=== PATIENT | female | born 2000 | race African-American/Black ===

== ENCOUNTER 2018-05-17 03:21 | Emergency (ER) | payer BC ==
--- OUTSIDE RECORDS SUMMARY | 2018-05-17 03:23 | XMS REPORT | Continuity of Care Document ---
:2000 Author Organization Interface Problems Problem Status Onset Classification Date Comments Source Date Reported Morbid Active Problem 12/04/2017 [facility] Medications Medication Details Route Status Patient Ordering Order Source Instructions Provider Date Triamcinolone
1 appl, Active Acetonide 1 TOP, TID, 018 Medical MG/ML Topical PRN For Group Lotion rash, X 14 day, # 60 ml, 0 Refill(s), Pharmacy: [facility] [id number] Nebulizer
1 ea, Active MISC, 018 Medical ONCALL, with Group adult mask, tubing and accessories, # 1 ea, 0 Refill(s) 200 ACTUAT
180 Active Albuterol 0.09 microgram=2 018 Medical MG/ACTUAT puff, Group Metered Dose INHALER, Inhaler Q6H, PRN [Proventil] wheezing, coughing, or shortness of breath, # 3 ea, 11 Refill(s), Pharmacy: [facility] [id number] montelukast 10
10 mg=1 Active mg oral tablet tab, PO, 018 Medical Bedtime, # Group 30 tab, 11 Refill(s), Pharmacy: [facility] [id number] predniSONE 20 mg
60 mg=3 Active oral tablet tab, PO, 018 Medical Daily, Take Group 3 tablets for 60 mg dose, X 5 day, # 15 tab, 0 Refill(s), Pharmacy: [facility] [id number] Advair HFA 115
1 puff, Active mcg-21 mcg/inh INHALATION, 018 Medical inhalation BID, # 12 Group aerosol with gm, 3 adapter Refill(s), Pharmacy: [facility] [id number] Albuterol 0.83
2.49 Active MG/ML Inhalant mg=3 mL, 018 Medical Solution NEB, Q6H, Group PRN as needed for shortness of breath, # 120 ea, 3 Refill(s), Pharmacy: [facility] [id number] 200 ACTUAT
2 puff, Inactive Albuterol 0.09 INHALER, 018 Medical MG/ACTUAT Q6H, PRN Group Metered Dose wheezing, Inhaler coughing, or [Proventil] shortness of breath, # 1 ea, 1 Refill(s) Allergies, Adverse Reactions, Alerts Substance Category Reaction Severity Reaction Status Date Comments Source type Reported codeine Assertion Drug Active allergy Medical Group Immunizations Immunization Date Given Site Status Last Updated Comments Source Results Order Results Value Reference Date Interpretation Comments Source Name Range Chest 2 Chest 2 PA and lateral views chest views views DX 2017 - [place] [facility] [place] INDICATION: Chest pain Read by: Wade Rajan MD Dictated Date/time: 02/26/18 00:54 Electronically Signed by: Wade Rajan MD 02/26/18 00:54 FINAL REPORT COMPARISON: none FINDINGS: Heart/mediastinum: normal LUNGS: clear without infiltrate or effusion Bone structures: unremarkable Upper abdomen: unremarkable Incidental findings: none IMPRESSION: Normal chest radiographs. Vital Signs Vital Sign Value Date Comments Source Height 166.37 cm 12/01/2017 Medical Group BMI Calculated 35.48 12/01/2017 Medical [facility] Weight 98.21 12/01/2017 Medical Group Systolic (mm Hg) 118 12/01/2017 Medical Group Diastolic (mm Hg) 81 12/01/2017 Medical [facility] Temperature Oral (F) 98.8 F 12/01/2017 Medical [facility] Heart Rate 68 12/01/2017 Medical [facility] Encounters Location Location Encounter Encounter Reason Attending ADM DC Status Source Details Type Number For Provider Date Date Visit Outpatient [id number] WILLIAMS 12/01 [facility] Outpatient [id number] Williams 12/01 12/02 [facility] [place] /2017 [facility] Out[facility] [id number] [facility] [facility] [place] Procedures Procedure Code Date Perfomer Comments Source
--- OUTSIDE RECORDS SUMMARY | 2018-05-17 03:24 | XMS REPORT | Summary of Care ---
:2000 Author Organization [facility] Primary Care [facility] Address [address] [place] [address], [address] [address]- Encounter HQ Bennett(FIN) [id number] Date(s): 12/01/17 - 12/01/17 [facility] [address] [place] [address], [address] [place] [address]- [phone] Discharge Disposition: Home or Self Care Attending Physician: Williams Bell MD Vital Signs Most recent to oldest [Reference Range]: 1 Height 166.37 cm (12/01/17 1:39 PM) Temperature Oral [96.4-99.1 DegF] 98.8 DegF (12/01/17 1:39 PM) Blood Pressure [90-140/60-90 mmHg] 118/81 mmHg (12/01/17 1:39 PM) Peripheral Pulse Rate [60-100 bpm] 68 bpm (12/01/17 1:39 PM) Weight 98.21 kg (12/01/17 1:39 PM) Body Mass Index 35.48 m2 (12/01/17 1:39 PM) Problem List Condition Effective Dates Status Health Status Informant Morbid obesity(Confirmed) Active Allergies, Adverse Reactions, Alerts Substance Reaction Severity Status codeine Active Medications Advair HFA 115 mcg-21 mcg/inh inhalation aerosol with adapter 1 puff, INHALATION, BID, # 12 gm, 3 Refill(s), Pharmacy: [facility] [id number] Start Date: 12/01/17 Status: Orderedalbuterol 0.083% inhalation solution 2.49 mg=3 mL, NEB, Q6H, PRN as needed for shortness of breath, # 120 ea, 3 Refill(s), Pharmacy: [facility] [id number] Start Date: 12/01/17 Stop Date: 03/31/18 Status: Orderedmontelukast 10 mg oral tablet 10 mg=1 tab, PO, Bedtime, # 30 tab, 11 Refill(s), Pharmacy: [facility] [id number] Start Date: 12/01/17 Status: OrderedNebulizer 1 ea, MISC, ONCALL, with adult mask, tubing and accessories, # 1 ea, 0 Refill(s) Start Date: 12/01/17 Status: OrderedpredniSONE 20 mg oral tablet 60 mg=3 tab, PO, Daily, Take 3 tablets for 60 mg dose, X 5 day, # 15 tab, 0 Refill(s), Pharmacy: [facility] [id number] Start Date: 12/01/17 Stop Date: 12/06/17 Status: OrderedProventil HFA 90 mcg/inh inhalation aerosol with adapter 2 puff, INHALER, Q6H, PRN wheezing, coughing, or shortness of breath, # 1 ea, 1 Refill(s) Start Date: 12/01/17 Stop Date: 12/01/17 Status: DiscontinuedProventil HFA 90 mcg/inh inhalation aerosol with adapter 180 microgram=2 puff, INHALER, Q6H, PRN wheezing, coughing, or shortness of breath, # 3 ea, 11 Refill(s), Pharmacy: [facility] [id number] Start Date: 12/01/17 Status: Orderedtriamcinolone topical 0.1% lotion 1 appl, TOP, TID, PRN For rash, X 14 day, # 60 ml, 0 Refill(s), Pharmacy: [facility] [id number] Start Date: 12/01/17 Stop Date: 12/15/17 Status: Ordered Results No data available for this section Immunizations No data available for this section Procedures Procedure Date Related Diagnosis Body Site None Social History Social History Type Response Smoking Status Never smoker; Ready to change: No; Concerns about tobacco use in household: No; Exposure to Tobacco Smoke None; Cigarette Smoking Last 365 Days No; Reg Smoking Cessation Counseling No Assessment and Plan No data available for this section
[2018-05-17 04:18] LABS: Absolute Lymphocytes (CBC) 2.2 K/uL (0.7-4.9); Absolute Monocytes 0.7 K/uL (0.1-1.3); Absolute Neutrophil 3.1 K/uL (1.8-8.0); Basophils % 0.8 % (0-1.3); Hematocrit 38.1 % (36.0-45.0); Lymphocytes % 34.7 % (15.3-44.8); MCH 25.7 pg (27.0-35.0); MCV 77.8 fL (80-100); MPV 8.5 fL (7.6-11.3); Monocytes % 11.3 % (3.3-12.3)
[2018-05-17 04:23] LABS: Potassium 3.2 mEq/L (3.6-5.0)
[2018-05-17 04:26] LABS: Albumin 4.1 g/dL (3.2-5.5); Bilirubin Total 0.9 mg/dL (0.3-1.2); Protein, Total 7.9 g/dL (6.0-8.3)
--- NOTE | 2018-05-17 05:38 | ER ---
Nurse's Notes [facility] Name: Parisa Hernandez Age: 18 yrs Sex: Female : 2000 Arrival Date: 05/17/2018 Time: 03:22 Bed 13 Private MD: Diagnosis: Chest pain;Medication reaction Presentation: 05/17 03:30 Presenting complaint: Patient states: at 1900 chest pain and SOB. 2145 after clocking ak1 out of work, dizziness and light headed. pt became anxious and could not sleep. pt stated chest pain sometimes radiates to her back and the back of her neck. 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 Transition of care: patient was not received from another setting of care. Onset of symptoms was May 17, 2018. Risk Assessment: Do you want to hurt yourself or someone else? Patient reports no desire to harm self or others. Initial Sepsis Screen: Does the patient meet any 2 criteria? No. Patient's initial sepsis screen is negative. Does the patient have a suspected source of infection? No. Patient's initial sepsis screen is negative. Care prior to arrival: None. 03:30 Method Of Arrival: Ambulatory ak1 03:30 Acuity: ENA 3 ak1 03:34 Note pt taking cipro for UTI. ak1 Triage Assessment: 03:36 General: Appears in no apparent distress. 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 - Social history:: Smoking status: Patient/guardian denies using tobacco. - Ebola Screening: : No symptoms or risks identified at this time. Screenin:35 Abuse screen: Denies threats or abuse. Denies injuries from another. Nutritional ak1 screening: No deficits noted. Tuberculosis screening: No symptoms or risk factors identified. Fall Risk None identified. Assessment: 03:35 Pain: Pain radiates to base of the skull Pain began 1900 05/16/18. ak1 03:40 General: Appears in no apparent distress. uncomfortable, Behavior is calm, cooperative, bs1 appropriate for age. Pain: Complains of pain in mid chest Pain radiates to base of the skull. Neuro: Level of Consciousness is awake, alert, obeys commands, Oriented to person, place, time, situation, Appropriate for age. Cardiovascular: Reports chest pain, shortness of breath, Heart tones S1 S2 present Capillary refill < 3 seconds Patient's skin is warm and dry. Respiratory: Airway is patent Trachea midline Respiratory effort is even, unlabored, Breath sounds are clear bilaterally. GI: No signs and/or symptoms were reported involving the gastrointestinal system. : No signs and/or symptoms were reported regarding the genitourinary system. EENT: No signs and/or symptoms were reported regarding the EENT system. Derm: Skin is intact, Skin is pink, warm \T\ dry. normal. Musculoskeletal: Circulation, motion, and sensation intact. Capillary refill < 3 seconds, Range of motion: intact in all extremities. 04:30 Reassessment: Patient appears in no apparent distress at this time. Patient and/or bs1 family updated on plan of care and expected duration. Pain level reassessed. Patient is alert, oriented x 3, equal unlabored respirations, skin warm/dry/pink. Patient states feeling better. Patient states symptoms have improved. 05:30 Reassessment: Patient appears in no apparent distress at this time. Patient and/or bs1 family updated on plan of care and expected duration. Pain level reassessed. Vital Signs: 03:34 BP 128 / 89; Pulse 86; Resp 18; Temp 98.1; Pulse Ox 99% on R/A; Weight 90.72 kg (R); ak1 Height 5 ft. 8 in. (172.72 cm) (R); Pain 5/10; 04:34 BP 112 / 62; Pulse 82; Resp 16; Pulse Ox 100% on R/A; Pain 0/10; bs1 05:34 BP 110 / 60; Pulse 80; Resp 16; Temp 98(O); Pulse Ox 100% on R/A; Pain 0/10; bs1 03:34 Body Mass Index 30.41 (90.72 kg, 172.72 cm) ak1 ED Course: 03:22 Patient arrived in ED. ds1 03:25 Marco Antonio Phoenix MD is Attending Physician. ps1 03:32 Triage completed. ak1 03:34 Cayla Cornelius, RN is Primary Nurse. bs1 03:34 Arm band placed on Patient placed in an exam room, on a stretcher, on pulse oximetry, ak1 Patient notified of wait time. 03:35 Patient has correct armband on for positive identification. Bed in low position. Call ak1 light in reach. Side rails up X 1. Pulse ox on. NIBP on. 03:35 Patient maintains SpO2 saturation greater than 95% on room air. ak1 05:47 No provider procedures requiring assistance completed. IV discontinued, bleeding bs1 controlled, No redness/swelling at site. Pressure dressing applied. Administered Medications: No medications were administered Outcome: 05:37 Discharge ordered by MD. ps1 05:47 Discharged to home ambulatory. bs1 05:47 Condition: stable 05:47 Discharge instructions given to patient, Instructed on discharge instructions, follow up and referral plans. Demonstrated understanding of instructions, follow-up care. 05:48 Patient left the ED. bs1 Signatures: Haven Rosenbaum ds1 Karissa Garner RN RN ak1 Marco Antonio Phoenix MD MD ps1 Cayla Cornelius, RN RN bs1
--- NOTE | 2018-05-17 05:38 | EDPHYS ---
Physician Documentation [facility] Name: Parisa Hernandez Age: 18 yrs Sex: Female : 2000 Arrival Date: 05/17/2018 Time: 03:22 Bed 13 Private MD: ED Physician Marco Antonio Phoenix HPI: 05/17 03:47 This 18 yrs old Black Female presents to ER via Ambulatory with complaints of Chest ps1 Pain, Shortness Of Breath. 03:47 The patient or guardian reports chest pain that is located primarily in the anterior ps1 chest wall, left. The pain does not radiate. Associated signs and symptoms: Pertinent positives: palpitations, shortness of breath. The chest pain is described as sharp. Duration: The patient or guardian reports a single episode, that is now resolved. Feels like she may have had a panic attack or as if she had too much caffiene.Patient is additionally on phentermine for weight loss. Was not told that she may have these side effects. Has a history of sinus arrythmia. . 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 - Social history:: Smoking status: Patient/guardian denies using tobacco. - Ebola Screening: : No symptoms or risks identified at this time. ROS: 03:50 Constitutional: Negative for fever, chills, and weight loss, Eyes: Negative for injury, ps1 pain, redness, and discharge, Abdomen/GI: Negative for abdominal pain, nausea, vomiting, diarrhea, and constipation, Back: Negative for injury and pain, MS/Extremity: Negative for injury and deformity, Skin: Negative for injury, rash, and discoloration, Neuro: Negative for headache, weakness, numbness, tingling, and seizure. 03:50 Cardiovascular: Positive for chest pain. 03:50 Respiratory: Positive for shortness of breath. Exam: 03:51 Constitutional: This is a well developed, well nourished patient who is awake, alert, ps1 and in no acute distress. Head/Face: Normocephalic, atraumatic. Eyes: Pupils equal round and reactive to light, extra-ocular motions intact. Lids and lashes normal. Conjunctiva and sclera are non-icteric and not injected. Chest/axilla: Normal chest wall appearance and motion. Nontender with no deformity. No lesions are appreciated. Cardiovascular: Regular rate and rhythm. No gallops, murmurs, or rubs. Normal PMI, no JVD. No pulse deficits. Respiratory: Lungs have equal breath sounds bilaterally, clear to auscultation and percussion. No rales, rhonchi or wheezes noted. No increased work of breathing, no retractions or nasal flaring. Abdomen/GI: Soft, non-tender, with normal bowel sounds. No distension or tympany. No guarding or rebound. No evidence of tenderness throughout. Skin: Warm, dry with normal turgor. Normal color with no rashes, no lesions, and no evidence of cellulitis. MS/ Extremity: Pulses equal, no cyanosis. Neurovascular intact. Full, normal range of motion. Neuro: Awake and alert, GCS 15, oriented to person, place, time, and situation. Cranial nerves II-XII grossly intact. Sensory grossly intact. Psych: Awake, alert, with orientation to person, place and time. Behavior, mood, and affect are within normal limits. Vital Signs: 03:34 BP 128 / 89; Pulse 86; Resp 18; Temp 98.1; Pulse Ox 99% on R/A; Weight 90.72 kg (R); ak1 Height 5 ft. 8 in. (172.72 cm) (R); Pain 5/10; 04:34 BP 112 / 62; Pulse 82; Resp 16; Pulse Ox 100% on R/A; Pain 0/10; bs1 05:34 BP 110 / 60; Pulse 80; Resp 16; Temp 98(O); Pulse Ox 100% on R/A; Pain 0/10; bs1 03:34 Body Mass Index 30.41 (90.72 kg, 172.72 cm) ak1 MDM: 04:12 Patient medically screened. ps1 05:38 Data reviewed: vital signs, nurses notes, lab test result(s). ED course: pain ps1 reproducible. History consistent with medication reaction to phenteramine. PERC ruled out. Stable for discharge. . 05/17 03:47 Order name: CBC with Diff; Complete Time: 04:26 ps1 05/17 03:47 Order name: CMP; Complete Time: 05:10 ps1 05/17 03:47 Order name: EKG - Nurse/Tech; Complete Time: 03:56 ps1 05/17 04:07 Order name: EKG; Complete Time: 04:07 oe Administered Medications: No medications were administered Disposition: 05/17/18 05:37 Discharged to Home. Impression: Chest pain, Medication reaction. - Condition is Stable. - Discharge Instructions: Costochondritis, [id number]. - Medication Reconciliation Form, Thank You Letter, Antibiotic Education, Prescription Opioid Use form. - Follow up: Private Physician; When: As needed; Reason: Recheck today's complaints, Continuance of care, Re-evaluation by your physician. Follow up: Emergency Department; When: As needed; Reason: Fever > 102 F, Trouble breathing, Worsening of condition. - Problem is new. - Symptoms are resolved. Signatures: Dispatcher [employer] EDMS Karissa Garner RN RN ak1 Marco Antonio Phoenix MD MD ps1 Cayla Cornelius RN RN bs1 Corrections: (The following items were deleted from the chart) 05:48 05:37 05/17/2018 05:37 Discharged to Home. Impression: Chest pain; Medication reaction. bs1 Condition is Stable. Forms are Medication Reconciliation Form, Thank You Letter, Antibiotic Education, Prescription Opioid Use. Follow up: Private Physician; When: As needed; Reason: Recheck today's complaints, Continuance of care, Re-evaluation by your physician. Follow up: Emergency Department; When: As needed; Reason: Fever > 102 F, Trouble breathing, Worsening of condition. Problem is new. Symptoms are resolved. ps1
--- NOTE | 2018-05-17 09:28 | EKG ---
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
== END 2018-05-17 05:48 | disposition home or self-care (01) ==
LOC: ER 03:21
DX: R07.9 Chest pain, unspecified (principal); R06.02 Shortness of breath; Z88.6 Allergy status to analgesic agent
CPT/HCPCS: 36415; 80053; 85025; 93005; 99284

== ENCOUNTER 2019-11-12 21:57 | Emergency (ER) | payer BC ==
[2019-11-12 22:54] LABS: Absolute Lymphocytes (CBC) 2.5 K/uL (0.7-4.9); Basophils % 1.1 % (0-1.3); MPV 9.5 fL (7.6-11.3); RBC Red Blood Cell Count 4.53 M/uL (3.86-4.86)
[2019-11-12 23:26] LABS: ALT/SGPT 26 U/L (12-78); AST/SGOT 17 U/L (15-37); Albumin 3.5 g/dL (3.4-5.0); Alkaline Phosphatase 145 U/L (45-117); BUN Blood Urea Nitrogen 9 mg/dL (7-18); Bicarbonate 27 mmol/L (21-32); Bilirubin Direct < 0.1 mg/dL (0-0.2); Bilirubin Total 0.2 mg/dL (0.2-1.0); Glucose Level 98 mg/dL (74-106); Lipase 138 U/L (73-393); Potassium 3.9 mmol/L (3.5-5.1); Sodium Level 142 mmol/L (136-145)
[2019-11-12 23:37] LABS: Urine Blood NEGATIVE (NEG); Urine Glucose NEGATIVE (NEG); Urine Protein NEGATIVE (NEG); Urine Specific Gravity 1.015 (1.005-1.030)
[2019-11-12 23:43] LABS: Urine Bacteria <20 /HPF (<20); Urine Culture Reflex Order NOT NEEDED; Urine RBC NONE SEEN /HPF (NONE SEEN)
--- NOTE | 2019-11-13 00:35 | ER ---
Nurse's Notes [facility] Name: Parisa Hernandez Age: 19 yrs Sex: Female : 2000 Arrival Date: 11/12/2019 Time: 21:59 Bed 5 Private MD: Diagnosis: Nonspecific mesenteric lymphadenitis Presentation: 11/12 22:08 Presenting complaint: Patient states: pelvic pain that started earlier this evening. aa1 Denies bleeding or dysuria. Transition of care: patient was not received from another setting of care. Onset of symptoms was November 12, 2019. Risk Assessment: Do you want to hurt yourself or someone else? Patient reports no desire to harm self or others. Initial Sepsis Screen: Does the patient meet any 2 criteria? No. Patient's initial sepsis screen is negative. Does the patient have a suspected source of infection? No. Patient's initial sepsis screen is negative. Care prior to arrival: None. 22:08 Method Of Arrival: Ambulatory aa1 22:08 Acuity: ENA 3 aa1 Triage Assessment: 22:10 General: Appears in no apparent distress. comfortable, Behavior is calm, cooperative, aa1 appropriate for age. 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 - Social history:: Smoking status: Patient uses tobacco products, denies chronic smoking, but will smoke occasionally. - Ebola Screening: : No symptoms or risks identified at this time. Screenin:11 Abuse screen: Denies threats or abuse. Nutritional screening: No deficits noted. ea Tuberculosis screening: No symptoms or risk factors identified. Fall Risk None identified. Assessment: 22:10 General: Appears in no apparent distress. Behavior is calm, cooperative, appropriate ea for age. Pain: Complains of pain in left lower quadrant. Neuro: Level of Consciousness is awake, alert, obeys commands, Oriented to person, place, time, situation. Cardiovascular: Patient's skin is warm and dry. Respiratory: Airway is patent Respiratory effort is even, unlabored, Respiratory pattern is regular, symmetrical. GI: Reports lower abdominal pain, diarrhea, report diarrhea for the past week Patient currently denies nausea, vomiting. Derm: Skin is pink, warm \T\ dry. Musculoskeletal: Circulation, motion, and sensation intact. 23:30 Reassessment: Patient and/or family updated on plan of care and expected duration. Pain ea level reassessed. Patient is alert, oriented x 3, equal unlabored respirations, skin warm/dry/pink. 11/13 00:00 Reassessment: Patient and/or family updated on plan of care and expected duration. Pain ea level reassessed. Patient is alert, oriented x 3, equal unlabored respirations, skin warm/dry/pink. 00:30 Reassessment: pt complaining of wheezing, provider notified, medication order obtained. ea 00:50 Reassessment: Patient and/or family updated on plan of care and expected duration. Pain ea level reassessed. Patient is alert, oriented x 3, equal unlabored respirations, skin warm/dry/pink. Discharge instruction given to patient, verbalized the understanding of instruction. Pt left ED ambulatory accompanied by family. Vital Signs: 11/12 22:10 BP 148 / 96; Pulse 74; Resp 18; Temp 98.5; Pulse Ox 100% on R/A; Weight 97.52 kg; aa1 Height 5 ft. 7 in. (170.18 cm); Pain 7/10; 23:37 BP 125 / 68; Pulse 80; Resp 18; Pulse Ox 100% ; ea 11/13 00:45 BP 128 / 70; Pulse 78; Resp 18; Temp 97.5; Pulse Ox 99% ; ea 11/12 22:10 Body Mass Index 33.67 (97.52 kg, 170.18 cm) aa1 ED Course: 11/12 21:59 Patient arrived in ED. cf2 22:10 Triage completed. aa1 22:10 Zane Fernandez PA is PHCP. jr8 22:10 Saul Seth MD is Attending Physician. jr8 22:11 Arm band placed on right wrist. Patient placed in an exam room, on a stretcher, on ea pulse oximetry. 22:12 Patient has correct armband on for positive identification. Bed in low position. Call ea light in reach. Side rails up X 1. Adult w/ patient. 22:22 Oksana Dodge, RN is Primary Nurse. ea 22:45 Inserted saline lock: 20 gauge in right antecubital area, using aseptic technique. ea 11/13 00:26 CT Abd/Pelvis - IV Contrast Only In Process Unspecified. EDMS 00:50 IV discontinued, intact, bleeding controlled, No redness/swelling at site. Pressure ea dressing applied. 01:04 No provider procedures requiring assistance completed. ea Administered Medications: 00:30 Drug: Albuterol 1.25 mg Route: Inhalation; ea 00:55 Follow up: Response: No adverse reaction ea 00:43 Drug: TORadol - Ketorolac 15 mg Route: IVP; Site: right antecubital; jd3 00:45 Follow up: Response: Medication administered at discharge. jd3 Outcome: 00:35 Discharge ordered by . jr8 00:50 Discharged to home ambulatory, with significant other. ea 00:50 Condition: stable 00:50 Instructed on discharge instructions, follow up and referral plans. Demonstrated understanding of instructions, follow-up care. 01:06 Patient left the ED. ea 01:10 Patient left the ED. ea Signatures: Dispatcher [employer] EDMS Johana Zambrano, RN RN aa1 Zane Fernandez PA PA jr8 Oksana Dodge RN RN Jay Sutton RN RN Russell Sousa2
--- NOTE | 2019-11-13 00:35 | EDPHYS ---
Physician Documentation [facility] Name: Parisa Hernandez Age: 19 yrs Sex: Female : 2000 Arrival Date: 11/12/2019 Time: 21:59 Bed 5 Private MD: ED Physician Saul Seth HPI: 11/12 22:29 This 19 yrs old Black Female presents to ER via Ambulatory with complaints of Abdominal jr8 pain. 22:29 The patient presents with abdominal pain in the left lower quadrant. Onset: The jr8 symptoms/episode began/occurred acutely, today. The symptoms radiate to left back. Associated signs and symptoms: none. The symptoms are described as stabbing. Modifying factors: The symptoms are alleviated by nothing, the symptoms are aggravated by nothing. Severity of pain: At its worst the pain was moderate in the emergency department the pain is unchanged. The patient has not experienced similar symptoms in the past. The patient has not recently seen a physician. 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 - Social history:: Smoking status: Patient uses tobacco products, denies chronic smoking, but will smoke occasionally. - Ebola Screening: : No symptoms or risks identified at this time. ROS: 22:29 Eyes: Negative for injury, pain, redness, and discharge, ENT: Negative for injury, jr8 pain, and discharge, Neck: Negative for injury, pain, and swelling, Cardiovascular: Negative for chest pain, palpitations, and edema, Respiratory: Negative for shortness of breath, cough, wheezing, and pleuritic chest pain, Back: Negative for injury and pain, MS/Extremity: Negative for injury and deformity, Skin: Negative for injury, rash, and discoloration, Neuro: Negative for headache, weakness, numbness, tingling, and seizure. 22:29 Abdomen/GI: Positive for abdominal pain, Negative for nausea, vomiting, and diarrhea, constipation, abdominal cramps, abdominal distension. Exam: 22:29 Eyes: Pupils equal round and reactive to light, extra-ocular motions intact. Lids and jr8 lashes normal. Conjunctiva and sclera are non-icteric and not injected. Cornea within normal limits. Periorbital areas with no swelling, redness, or edema. ENT: Nares patent. No nasal discharge, no septal abnormalities noted. Tympanic membranes are normal and external auditory canals are clear. Oropharynx with no redness, swelling, or masses, exudates, or evidence of obstruction, uvula midline. Mucous membranes moist. Neck: Trachea midline, no thyromegaly or masses palpated, and no cervical lymphadenopathy. Supple, full range of motion without nuchal rigidity, or vertebral point tenderness. No Meningismus. Cardiovascular: Regular rate and rhythm with a normal S1 and S2. No gallops, murmurs, or rubs. Normal PMI, no JVD. No pulse deficits. Respiratory: Lungs have equal breath sounds bilaterally, clear to auscultation and percussion. No rales, rhonchi or wheezes noted. No increased work of breathing, no retractions or nasal flaring. Back: No spinal tenderness. No costovertebral tenderness. Full range of motion. Skin: Warm, dry with normal turgor. Normal color with no rashes, no lesions, and no evidence of cellulitis. MS/ Extremity: Pulses equal, no cyanosis. Neurovascular intact. Full, normal range of motion. Neuro: Awake and alert, GCS 15, oriented to person, place, time, and situation. Cranial nerves II-XII grossly intact. Motor strength 5/5 in all extremities. Sensory grossly intact. Cerebellar exam normal. Normal gait. 22:29 Abdomen/GI: Inspection: abdomen appears normal, Bowel sounds: active, all quadrants, Palpation: soft, in all quadrants, moderate abdominal tenderness, in the left lower quadrant, mass, is not appreciated, rebound tenderness, is not appreciated, voluntary guarding, is not appreciated, involuntary guarding, is not appreciated, no appreciated organomegaly, Indicators: McBurney's point is not tender, Lora's sign is negative, Rovsing's sign is negative, Liver: tenderness, is not appreciated. Vital Signs: 22:10 BP 148 / 96; Pulse 74; Resp 18; Temp 98.5; Pulse Ox 100% on R/A; Weight 97.52 kg; aa1 Height 5 ft. 7 in. (170.18 cm); Pain 7/10; 23:37 BP 125 / 68; Pulse 80; Resp 18; Pulse Ox 100% ; ea 11/13 00:45 BP 128 / 70; Pulse 78; Resp 18; Temp 97.5; Pulse Ox 99% ; ea 11/12 22:10 Body Mass Index 33.67 (97.52 kg, 170.18 cm) aa1 MDM: 11/12 22:11 Patient medically screened. [facility] 11/13 00:34 Data reviewed: vital signs, nurses notes, lab test result(s), radiologic studies, CT [facility] scan. Data interpreted: Pulse oximetry: on room air is 100 %. Interpretation: normal. Counseling: I had a detailed discussion with the patient and/or guardian regarding: the historical points, exam findings, and any diagnostic results supporting the discharge/admit diagnosis, lab results, radiology results, the need for outpatient follow up, a family practitioner, to return to the emergency department if symptoms worsen or persist or if there are any questions or concerns that arise at home. 11/12 22:21 Order name: Basic Metabolic Panel; Complete Time: 23:53 [facility] 11/12 22:21 Order name: CBC with Diff; Complete Time: 23:30 [facility] 11/12 22:21 Order name: Creatinine for Radiology; Complete Time: 23:53 [facility] 11/12 22:21 Order name: Hepatic Function; Complete Time: 23:53 [facility] 11/12 22:21 Order name: Lipase; Complete Time: 23:53 [facility] 11/12 22:21 Order name: Urine Microscopic Only; Complete Time: 23:53 [facility] 11/12 22:21 Order name: IV Saline Lock; Complete Time: 22:56 [facility] 11/12 22:21 Order name: Labs collected and sent; Complete Time: 22:56 [facility] 11/12 22:21 Order name: Urine Test (obtain specimen); Complete Time: 22:56 [facility] 11/12 22:51 Order name: Urine Dipstick--Ancillary (enter results); Complete Time: 23:53 [facility] 11/12 22:51 Order name: Urine --Ancillary (enter results); Complete Time: 23:53 [facility] 11/12 23:21 Order name: CT Abd/Pelvis - IV Contrast Only [facility] 11/12 22:21 Order name: Urine Dipstick-Ancillary (obtain specimen); Complete Time: 22:56 jr8 Administered Medications: 00:30 Drug: Albuterol 1.25 mg Route: Inhalation; ea 00:55 Follow up: Response: No adverse reaction ea 00:43 Drug: TORadol - Ketorolac 15 mg Route: IVP; Site: right antecubital; jd3 00:45 Follow up: Response: Medication administered at discharge. jd3 Disposition: 01:22 Co-signature as Attending Physician, Saul Seth MD. rn Disposition: 11/13/19 00:35 Discharged to Home. Impression: Nonspecific mesenteric lymphadenitis. - Condition is Stable. - Discharge Instructions: Mesenteric Adenitis, Pediatric, Lymphadenopathy. - Medication Reconciliation Form, Thank You Letter, Antibiotic Education, Prescription Opioid Use form. - Follow up: Private Physician; When: 2 - 3 days; Reason: Recheck today's complaints, Continuance of care, Re-evaluation by your physician. - Problem is new. - Symptoms have improved. Signatures: Dispatcher [employer] EDJohana Schmidt RN RN aa1 Saul Seth MD MD rn Roszak, Josh, INDER LOVING jr8 Oksana Dodge RN RN ea Davies, Jonathon, RN RN jd3 Corrections: (The following items were deleted from the chart) 01:06 00:35 11/13/2019 00:35 Discharged to Home. Impression: Nonspecific mesenteric ea lymphadenitis. Condition is Stable. Forms are Medication Reconciliation Form, Thank You Letter, Antibiotic Education, Prescription Opioid Use. Follow up: Private Physician; When: 2 - 3 days; Reason: Recheck today's complaints, Continuance of care, Re-evaluation by your physician. Problem is new. Symptoms have improved. jr8 01:10 01:06 11/13/2019 00:35 Discharged to Home. Impression: Nonspecific mesenteric ea lymphadenitis. Condition is Stable. Discharge Instructions: Mesenteric Adenitis, Pediatric, Lymphadenopathy. Forms are Medication Reconciliation Form, Thank You Letter, Antibiotic Education, Prescription Opioid Use. Follow up: Private Physician; When: 2 - 3 days; Reason: Recheck today's complaints, Continuance of care, Re-evaluation by your physician. Problem is new. Symptoms have improved. ea
[2019-11-13] MEDS ORDERED: KETOROLAC 30 MG/ML INJ ONE (00:42)
[2019-11-13] MEDS ORDERED: ALBUTEROL 2.5 MG/3 ML NEB SOL ONE (00:49)
[2019-11-13 04:05] VITALS: TEMP 98.7
[2019-11-13 04:06] VITALS: BP 114/75; O2SAT 99
--- NOTE | 2019-11-13 12:08 | RAD REPORT ---
EXAM DESCRIPTION: Abdomen Pelvis W Contrast CLINICAL HISTORY: 19 years Female PELVIC PAIN TECHNIQUE: Contiguous axial images obtained through the abdomen and pelvis following intravenous con trast administration. Coronal and sagittal reformatted images provided. This CT exam was performed according to our departmental dose-optimization program, which includes on e or more of the following dose reduction techniques: automated exposure control, adjustment of the m A and/or kV according to patient size, and/or use of iterative reconstruction technique. COMPARISON: No prior exams provided for comparison. FINDINGS: There is moderate hepatomegaly without focal lesion. The lung bases, biliary tree, gallbladder, pancreas, spleen, adrenal glands, uterus, ovaries, and uri nary bladder are normal. Bilateral renal cysts without hydronephrosis or pyelonephritis on either side. Trace free fluid in the cul-de-sac. Mild colonic constipation. No bowel wall thickening, obstruction, pneumatosis, or free intraperitonea l air. Normal appendix. Nonspecific borderline ileocolic lymph nodes. No other lymphadenopathy. Small fat-containing umbilical hernia. No acute osseous abnormality. IMPRESSION: Moderate hepatomegaly without focal lesion. Trace free fluid in the cul-de-sac without adnexal mass. Mild mesenteric adenitis. Mild colonic constipation. Normal appendix. Electronically signed by: Cristy Francis MD 11/13/2019 12:29 AM MACHINE HAND Due to temporary technical issues with the PACS/Fluency reporting system, reports are being signed by the in house radiologist as a courtesy to ensure prompt reporting. The interpreting radiologist is f ully responsible for the content of the report.
== END 2019-11-13 01:10 | disposition home or self-care (01) ==
LOC: ER 21:57
DX: I88.0 Nonspecific mesenteric lymphadenitis (principal); Z72.0 Tobacco use; Z88.5 Allergy status to narcotic agent
CPT/HCPCS: 85025; 80048; 36415; 81025; 80076; 83690; 74177; 96374; 99284; Q9967; 81003; 81015

== ENCOUNTER 2020-08-08 15:30 | Emergency (ER) | payer BC ==
--- OUTSIDE RECORDS SUMMARY | 2020-08-08 15:39 | XMS REPORT | Continuity of Care Document ---
:2000 Author Organization [employer] Care Team Providers Name Role Phone [employer] Unavailable Un available Problems Problem Status Onset Classification Date Comments Sourc e Date Reported Chest pain, 06/04/2018 [place] r unspecified 8 Land Shortness of 06/04/2018 Sug ar breath [place] Morbid obesity Active Problem 06/04/2018 Cory edical (disorder) Group, [facility] Medications Medication Details Route Status Patient Ordering Order Source Instructions Provider Date Naproxen 500 MG 500 mg = 1 No Longer [facility] Enteric Coated tab, PO, Active 018 Land Tablet BID, X 10 [Naprosyn] day, # 20 tab, 0 Refill(s) Esomeprazole 40 40 mg = 1 Active Sug ar MG Enteric cap, PO, 018 [place] Coated Capsule Daily, # 30 [Nexium] cap, 0 Refill(s) Ketorolac 30 mg, Inactive [facility] Route: IVP, 018 Land ONCE, Dosing Weight 95.455, kg, Priority: STAT, Start date: 02/26/18 0:22:00 CDT, Stop date: 02/26/18 0:22:00 CDT GI cocktail 30 mL, Inactive [facility] Route: PO, 018 Land Dosing Weight 95.455, kg, ONCE, STAT, Start date: 02/26/18 0:22:00 CDT, Stop date: 02/26/18 0:22:00 CDT Famotidine 20 mg, Inactive [facility] Route: IVP, 018 Land ONCE, Dosing Weight 95.455, kg, Priority: STAT, Start date: 02/26/18 0:22:00 CDT, Stop date: 02/26/18 0:22:00 CDT Dicyclomine 20 mg = 1 Active Hydrochloride 20 tab, PO, 018 Medica l MG Oral Tablet QID-Before Group [Bentyl] Meals, PRN Bowel Movements, # 120 tab, 1 Refill(s), Pharmacy: [facility] [id number] Triamcinolone 1 appl, TOP, Active Acetonide 1 TID, PRN For 018 Medical MG/ML Topical rash, X 14 Group Lotion day, # 60 ml, 0 Refill(s), [id number] Nebulizer 1 ea, MISC, Active ONCALL, with 018 Medical adult mask, Group tubing and accessories, # 1 ea, 0 Refill(s) 200 ACTUAT 180 Active Albuterol 0.09 microgram = 018 Medic al MG/ACTUAT 2 puff, Group Metered Dose INHALER, Inhaler Q6H, PRN [Proventil] wheezing, coughing, or shortness of breath, # 3 ea, 11 Refill(s), Pharmacy: [facility] [id number] montelukast 10 10 mg = 1 Active mg oral tablet tab, PO, 018 Medical Bedtime, # Group 30 tab, 11 Refill(s), Pharmacy: [facility] [id number] predniSONE 20 mg 60 mg = 3 Active oral tablet tab, PO, 018 Medical Daily, Take Group 3 tablets for 60 mg dose, X 5 day, # 15 tab, 0 Refill(s), Pharmacy: [facility] [id number] Advair HFA 115 1 puff, Active mcg-21 mcg/inh INHALATION, 018 Medic al inhalation BID, # 12 Group aerosol with gm, 3 adapter Refill(s), Pharmacy: [facility] [id number] Albuterol 0.83 2.49 mg = 3 Active MH MG/ML Inhalant mL, NEB, 018 Medical Solution Q6H, PRN as Group needed for shortness of breath, # 120 ea, 3 Refill(s), Pharmacy: [facility] [id number] 200 ACTUAT 2 puff, Inactive Albuterol 0.09 INHALER, 018 Medical MG/ACTUAT Q6H, PRN Group Metered Dose wheezing, Inhaler coughing, or [Proventil] shortness of breath, # 1 ea, 1 Refill(s) Allergies, Adverse Reactions, Alerts Substance Category Reaction Severity Reaction Status Date Comments S ource type Reported codeine Assertion Drug Active MH allergy [facility] Immunizations No Data Provided for This Section Results Order Name Results Value Reference Date Interpretation Comments Marizol rce Range HEMATOLOGY D-Dimer <0.27 02/26 [facility] CARDIAC Troponin-I <0.02 0.00 - 02/26 MH ENZYMES 0.40 [facility] CHEM PANEL Lipase Lvl 120 73 - 393 02/26 [facility] CHEM PANEL A/G Ratio 1.0 0.7 - 1.6 02/26 [facility] CHEM PANEL Globulin 3.6 2.7 - 4.2 02/26 [facility] CHEM PANEL B/C Ratio 11 6 - 25 02/26 [facility] CHEM PANEL AGAP 14.8 10.0 - 02/26 MH 20.0 [facility] CHEM PANEL Bili Total 0.1 0.2 - 1.3 02/26 [place] CHEM PANEL Albumin Lvl 3.6 3.5 - 5.0 02/26 [place] CHEM PANEL Total 7.2 6.4 - 8.4 02/26 Protein [facility] CHEM PANEL Alk Phos 87 39 - 136 02/26 [facility] CHEM PANEL AST 19 0 - 37 02/26 [facility] CHEM PANEL ALT 32 0 - 65 02/26 [facility] CHEM PANEL eGFR 121 02/26 Result Comment: The [facility] eGFR is Land calculated using the CKD-EPI formula. In most young, healthy individuals the eGFR will be >90 mL/min/1.73m2 . The eGFR declines with age. An eGFR of 60-89 may be normal in some populations, particularly the elderly, for whom the CKD-EPI formula has not been extensively validated. Use of the eGFR is not recommended in the following populations:< br/>
[place] viduals with unstable creatinine concentration s, including patients and those with serious co-morbid conditions.<b r/>
Patie nts with extremes in muscle mass or diet.

The data above are obtained from the National Kidney Disease Education Program (NKDEP) which additionally recommends that when the eGFR is used in patients with extremes of body mass index for purposes of drug dosing, the eGFR should be multiplied by the estimated BMI. CHEM PANEL Glucose Lvl 90 70 - 99 02/26 [facility] CHEM PANEL CO2 24 24 - 32 02/26 [facility] CHEM PANEL Calcium Lvl 8.8 8.5 - 10.5 02/26 [facility] CHEM PANEL Chloride Lvl 106 95 - 109 02/26 [facility] CHEM PANEL Creatinine 0.81 0.50 - 02/26 MH Lvl 1.40 [facility] CHEM PANEL BUN 9 7 - 22 02/26 [facility] CHEM PANEL Potassium 3.8 3.5 - 5.1 02/26 MH Lvl /2017 [facility] CHEM PANEL Sodium Lvl 141 135 - 145 02/26 [facility] ENDOCRINOLOGY S Preg Negative Negative 02/26 (02/26/18 12:23 AM) [facility] HEMATOLOGY WBC 8.9 3.7 - 10.4 02/26 [facility] HEMATOLOGY Hgb 12.3 12.0 - 02/26 MH 16.0 [facility] HEMATOLOGY MCH 26.0 27.0 - 02/26 MH 31.0 [facility] HEMATOLOGY MCV 80.0 80.0 - 02/26 MH 98.0 [facility] HEMATOLOGY RBC 4.75 4.20 - 02/26 MH 5.40 /2017 [facility] HEMATOLOGY Hct 38.0 36.0 - 02/26 48.0 /2017 [facility] HEMATOLOGY RDW 14.3 11.5 - 02/26 MH 14.5 /2017 [facility] HEMATOLOGY MCHC 32.4 32.0 - 02/26 MH 36.0 [facility] HEMATOLOGY MPV 9.1 7.4 - 10.4 02/26 [facility] HEMATOLOGY Platelet 238 133 - 450 02/26 [facility] HEMATOLOGY Basophils # 0.1 0.0 - 0.2 02/26 [facility] HEMATOLOGY Segs-Bands # 4.4 1.5 - 8.1 02/26 [facility] HEMATOLOGY Eosinophils 0.5 0.0 - 0.5 02/26 MH # /2017 [facility] HEMATOLOGY Eosinophils 5.2 0.0 - 4.0 02/26 [facility] HEMATOLOGY Basophils 0.8 0.0 - 1.0 02/26 [facility] HEMATOLOGY Lymphocytes 3.1 1.0 - 5.5 02/26 # /2017 [facility] HEMATOLOGY Monocytes # 0.8 0.0 - 0.8 02/26 [facility] HEMATOLOGY Segs 50.1 45.0 - 02/26 75.0 [facility] HEMATOLOGY Lymphocytes 34.5 20.0 - 02/26 40.0 /2017 [facility] HEMATOLOGY Monocytes 9.4 2.0 - 12.0 02/26 [facility] Pathology Reports No Data Provided for This Section Diagnostic Reports Report Value Date Source Chest 2 views DX PA and lateral views chest 02/26/2018 [place] INDICATION: Chest pain COMPARISON: none FINDINGS: Heart/mediastinum: normal LUNGS: clear without infiltrate or effusion Bone structures: unremarkable Upper abdomen: unremarkable Incidental findings: none IMPRESSION: Normal chest radiographs. Consultation Notes No Data Provided for This Section Discharge Summaries No Data Provided for This Section History and Physicals No Data Provided for This Section Vital Signs Vital Sign Value Date Comments Source Systolic (mm Hg) 131 02/26/2018 [place] Diastolic (mm Hg) 78 02/26/2018 [facility] L and Heart Rate 61 02/26/2018 [facility] Respitory Rate 17 02/26/2018 [facility] Weight 95.455 02/26/2018 [facility] Systolic (mm Hg) 125 02/26/2018 [place] Diastolic (mm Hg) 76 02/26/2018 [facility] L and Heart Rate 63 02/26/2018 [facility] Respitory Rate 17 02/26/2018 [facility] Height 170.18 cm 02/26/2018 [facility] BMI Calculated 32.96 02/26/2018 [facility] Temperature Oral (F) 98.1 F 02/26/2018 [place] BMI Calculated 35.19 02/08/2018 [facility] Systolic (mm Hg) 120 02/08/2018 [facility] Diastolic (mm Hg) 80 02/08/2018 [facility] Weight 98.892 02/08/2018 [facility] Height 167.64 cm 02/08/2018 [facility] Heart Rate 75 02/08/2018 [facility] Height 166.37 cm 12/01/2017 [facility] BMI Calculated 35.48 12/01/2017 [facility] Weight 98.21 12/01/2017 [facility] Systolic (mm Hg) 118 12/01/2017 [facility] Diastolic (mm Hg) 81 12/01/2017 [facility] Temperature Oral (F) 98.8 F 12/01/2017 [facility]i [facility] Heart Rate 68 12/01/2017 [facility] p Encounters Location Location Encounter Encounter Reason Attending ADM DC Stat us Source Details Type Number For Provider Date Date Visit Outpatient [id number] [facility] Outpatient [id number] [place] 12/01 12/02 [facility] Outpatient [id number] C[place] 02/08 [facility] [place] [facility] Outpatient [id number] [place] 02/08 02/09 [facility] Emergency [id number] [place] 02/26 02/26 [place] [facility] Procedures No Data Provided for This Section Assessment and Plan No Data Provided for This Section Plan of Care No Data Provided for This Section Social History Social History Date Source Social History TypeResponse 02/26/2018 [facility] Smoking Status Never smoker; Type: Cigarettes; Ready to change: Yes; Concerns about tobacco use in household: No; Exposure to Tobacco Smoke None; Cigarette Smoking Last 365 Days Yes; Reg Smoking Cessation Counseling Yes entered on: 02/26/18 Social History TypeResponse 02/26/2018 [facility] Michele d Smoking Status Never smoker; Type: Cigarettes; Ready to change: Yes; Concerns about tobacco use in household: No; Exposure to Tobacco Smoke None; Cigarette Smoking Last 365 Days Yes; Reg Smoking Cessation Counseling Yes entered on: 02/26/18 Family History No Data Provided for This Section Advance Directives No Data Provided for This Section Functional Status No Data Provided for This Section
[2020-08-08 16:27] LABS: Absolute Lymphocytes (CBC) 1.7 K/uL (0.7-4.9); Hematocrit 40.6 % (36.0-45.0); Lymphocytes % 22.3 % (15.3-44.8); MPV 8.6 fL (7.6-11.3); RBC Red Blood Cell Count 5.07 M/uL (3.86-4.86)
[2020-08-08 16:28] LABS: Protime INR 1.1
[2020-08-08 16:36] LABS: Barbiturates NEGATIVE (NEGATIVE); Benzodiazepines NEGATIVE (NEGATIVE); Cocaine NEGATIVE (NEGATIVE); METHAMPHETAM NEGATIVE (NEGATIVE); Methadone NEGATIVE (NEGATIVE); Opiates NEGATIVE (NEGATIVE); Phencyclidine NEGATIVE (NEGATIVE); THC Cannibis POSITIVE (NEGATIVE)
[2020-08-08] MEDS ORDERED: NA CHLORIDE 0.9% 1,000 ML ONE (16:39)
[2020-08-08 16:41] LABS: Urine Blood NEGATIVE (NEG); Urine Glucose NEGATIVE (NEG); Urine Protein TRACE (NEG); Urine Specific Gravity >1.030 (1.005-1.030); Urine pH 5.5 (5.0-7.0)
[2020-08-08 16:47] LABS: ALT/SGPT 20 U/L (12-78); AST/SGOT 14 U/L (15-37); Alkaline Phosphatase 79 U/L (45-117); BUN Blood Urea Nitrogen 9 mg/dL (7-18); Bicarbonate 26 mmol/L (21-32); Bilirubin Direct 0.1 mg/dL (0-0.2); Bilirubin Total 0.4 mg/dL (0.2-1.0); Glucose Level 80 mg/dL (74-106); Potassium 3.5 mmol/L (3.5-5.1); Protein, Total 8.1 g/dL (6.4-8.2); Sodium Level 140 mmol/L (136-145)
--- NOTE | 2020-08-08 20:21 | EDPHYS ---
Physician Documentation [facility] Name: Parisa Hernandez Age: 20 yrs Sex: Female : 2000 Arrival Date: 08/08/2020 Time: 15:35 Bed 15 Private MD: ED Physician Saul Seth HPI: 08/08 15:52 This 20 yrs old Black Female presents to ER via EMS with complaints of Overdose, jmm Suicidal Ideation. 15:52 The patient presents to the emergency department after a known overdose, that was jmm intentional. Context: Time: 1 hour(s) ago, Extent:. Associated signs and symptoms: Pertinent positives: anxiety, decreased level of consciousness. The patient has experienced a previous episode. This is a 20 year old female with a history of asthma, depression, anxiety that presents to the ED in a somnolent state. According to EMS patient took 21 tabs of clonazepam. Patient states she has attempted to harm herself in the past. . 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 - Social history:: Smoking status: Patient reports the use of cigarette tobacco products, denies chronic smoking, but will smoke occasionally, Patient uses alcohol, occasionally. street drugs, marijuana. ROS: 15:52 Constitutional: Negative for fever, chills, and weight loss, Cardiovascular: Negative jmm for chest pain, palpitations, and edema, Respiratory: Negative for shortness of breath, cough, wheezing, and pleuritic chest pain, Abdomen/GI: Negative for abdominal pain, nausea, vomiting, diarrhea, and constipation. 15:52 Psych: Positive for anxiety, depression. 15:52 All other systems are negative. Exam: 15:52 Head/Face: atraumatic. Eyes: EOMI, no conjunctival erythema appreciated ENT: Moist jmm Mucus Membranes Neck: Trachea midline, Supple 15:52 Chest/axilla: Normal chest wall appearance and motion. Cardiovascular: Regular rate and rhythm. No edema appreciated Respiratory: Normal respirations, no respiratory distress appreciated Abdomen/GI: Non distended, soft Back: Normal ROM Skin: General appearance color normal MS/ Extremity: Moves all extremities, no obvious deformities appreciated, no edema noted to the lower extremities Neuro: Awake and alert, normal gait Psych: Behavior is normal, Mood is normal, Patient is cooperative and pleasant 15:52 Constitutional: The patient appears awake, anxious. Vital Signs: 15:41 BP 120 / 82; Pulse 101; Resp 17 S; Temp 98.7(TE); Pulse Ox 99% on R/A; Weight 90.72 kg ca1 (R); Height 5 ft. 7 in. (170.18 cm) (R); 16:49 BP 106 / 66; Pulse 86; Resp 16; Pulse Ox 100% ; bp 17:43 BP 117 / 66; Pulse 84; Resp 16; Pulse Ox 100% ; bp 15:41 Body Mass Index 31.32 (90.72 kg, 170.18 cm) ca1 MDM: 15:39 Patient medically screened. [facility] 20:18 Data reviewed: vital signs, nurses notes. Counseling: I had a detailed discussion with dominik the patient and/or guardian regarding: the historical points, exam findings, and any diagnostic results supporting the discharge/admit diagnosis, lab results, the need to transfer to another facility. Admission orders: after a detailed discussion of the patient's condition and case, the admit orders are written by me. ED course: I discussed the patient with with psychiatry from [facility] whom accepted transfer.. 08/08 15:45 Order name: Acetaminophen; Complete Time: 16:48 [facility] 08/08 15:45 Order name: Basic Metabolic Panel; Complete Time: 16:48 [facility] 08/08 15:45 Order name: CBC with Diff; Complete Time: 16:48 [facility] 08/08 15:45 Order name: ETOH Level; Complete Time: 16:48 [facility] 08/08 15:45 Order name: Hepatic Function; Complete Time: 16:48 [facility] 08/08 15:45 Order name: PT-INR; Complete Time: 16:48 [facility] 08/08 15:45 Order name: Urine Test (obtain specimen); Complete Time: 16:15 [facility] 08/08 15:45 Order name: Ptt, Activated; Complete Time: 16:48 [facility] 08/08 15:45 Order name: Salicylate; Complete Time: 16:54 [facility] 08/08 15:45 Order name: Urine Drug Screen; Complete Time: 16:48 [facility] 08/08 15:45 Order name: EKG; Complete Time: 15:47 [facility] 08/08 16:30 Order name: Urine Dipstick--Ancillary (enter results); Complete Time: 16:48 08/08 16:30 Order name: Urine --Ancillary (enter results); Complete Time: 16:48 08/08 15:45 Order name: EKG - Nurse/Tech; Complete Time: 17:00 [facility] 08/08 15:45 Order name: IV Saline Lock; Complete Time: 16:15 [facility] 08/08 15:45 Order name: Labs collected and sent; Complete Time: 16:15 [facility] 08/08 15:45 Order name: Urine Dipstick-Ancillary (obtain specimen); Complete Time: 16:15 [facility] Administered Medications: 16:00 Drug: NS 0.9% 1000 ml Route: IV; Rate: 1 bolus; Site: right forearm; bp 18:57 Follow up: IV Status: Completed infusion; IV Intake: 1000ml bp Disposition: 08/08/20 20:20 Transfer ordered to Psych Facility. Diagnosis is Suicidal ideations. - Reason for transfer: Higher level of care. - Accepting physician is [facility]. - Condition is Stable. - Problem is an acute exacerbation. - Symptoms are unchanged. Addendum: 08/10/2020 19:28 Co-signature as Attending Physician, Saul Seth MD. r n Signatures: Dispatcher [employer] EDMS Arvind Glass PA PA [facility] Saul Seth MD MD rn Peltier, Brian, RN RN bp Acob, Cheryl, RN RN ca1 Calcote, Vanessa, RN RN vc Corrections: (The following items were deleted from the chart) 08/08 21:40 20:20 08/08/2020 20:20 Transfer ordered to Psych Facility. Diagnosis is Suicidal vc ideations. Reason for transfer: Higher level of care. Accepting physician is [facility]. Condition is Stable. Problem is an acute exacerbation. Symptoms are unchanged. [facility]
--- NOTE | 2020-08-08 20:21 | ER ---
Nurse's Notes [facility] Name: Parisa Hernandez Age: 20 yrs Sex: Female : 2000 Arrival Date: 08/08/2020 Time: 15:35 Bed 15 Private MD: Diagnosis: Suicidal ideations Presentation: 08/08 15:41 Chief complaint: EMS states: Found by her aunt in her car barely responsive, reports ca1 she took 21 tabs of her Clonazepam 0.5mg <45 minutes [employer]. A\\T\\Ox4 on scene, reports drowsiness and dizziness. Noticed cutting on bilateral forearms. Coronavirus screen: Client denies travel out of the [place] in the last 14 days. At this time, the client does not indicate any symptoms associated with coronavirus-19. Ebola Screen: Patient negative for fever greater than or equal to 101.5 degrees Fahrenheit, and additional compatible Ebola Virus Disease symptoms Patient denies exposure to infectious person. Patient denies travel to an Ebola-affected area in the 21 days before illness onset. No symptoms or risks identified at this time. Initial Sepsis Screen: Does the patient meet any 2 criteria? No. Patient's initial sepsis screen is negative. Does the patient have a suspected source of infection? No. Patient's initial sepsis screen is negative. Risk Assessment: Do you want to hurt yourself or someone else? Unable to obtain Other: Pt refuses to answer. Onset of symptoms was August 08, 2020. 15:41 Method Of Arrival: EMS: [facility] ca1 15:41 Acuity: ENA 2 ca1 15:47 Chief complaint: Patient states: I also took a handful of Gabapentin this morning ca1 around 10-11 am but I made myself threw up right after I swallowed some. Triage Assessment: 15:45 General: Appears distressed, comfortable, obese, Behavior is flat, uncooperative. Pain: bp Denies pain. EENT: No deficits noted. Neuro: Level of Consciousness is awake, alert, obeys commands, Oriented to person, place, time, situation, Appropriate for age. Cardiovascular: No deficits noted. Respiratory: No deficits noted. GI: No signs and/or symptoms were reported involving the gastrointestinal system. : No signs and/or symptoms were reported regarding the genitourinary system. Derm: No deficits noted. Musculoskeletal: No deficits noted. 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 - Social history:: Smoking status: Patient reports the use of cigarette tobacco products, denies chronic smoking, but will smoke occasionally, Patient uses alcohol, occasionally. street drugs, marijuana. Screenin:45 Abuse screen: Denies threats or abuse. Denies injuries from another. Nutritional bp screening: No deficits noted. Tuberculosis screening: No symptoms or risk factors identified. Fall Risk None identified. Assessment: 15:45 General: SEE TRIAGE NOTE. bp 16:25 Reassessment: Aquiles from Poison Control called prior to pt arrival and recommended to iw monitor pt for DRAMATIC DIRECTOR depression and respiratory depression, draw tox labs, EKG, , give support give care, do not give Romazicon. 17:31 Reassessment: PROVIDER AT B/S. PT UDS NOTED TO BE LACKING IN ALLEGEDLY INGESTED bp MATERIALS. 17:43 Reassessment: [facility] [address], PROVIDED TO PT FOR COUNSELING. bp 18:23 Reassessment: pt removed her IV, states she wants to go home, pt was updated on POC, iw advised that [facility] recommends inpatient treatment and INDER Samuels agrees she needs inpatient treatment, I advised the pt that we are going to initiate transfer to psych facility, pt states "no I wanna go home, y'all can't keep me here, if y'all try to send me somewhere I'm gonna kill myself". 18:33 Reassessment: INDER Samuels notified of pt's statements, [facility] was notified iw for LESLIE, states he has to drive from [place] and to call [place] [employer] if pt is actively trying to leave the ER. 18:44 Reassessment: PT ATTEMPTING TO ELOPE, COMPLIED WITH VERBAL REDIRECTION TO ROOM. PT D/C bp MONITORING EQUIPMENT AND PIV. 18:48 Reassessment: PT OUT OF BED TO RESTROOM DESPITE REDIRECTION, REFUSING TO RELINQUISH bp PERSONAL WARDROBE. 18:56 Reassessment: [facility] CONTACTED, PT ELOPED FROM BUILDING, IGNORING STAFF DIRECTION. bp 19:19 Reassessment: PATIENTS MOM CALLED WITH ACCESS CODE, UNAWARE PATIENT HAD ELOPED. vc 19:38 Reassessment: Leonora RN for [facility] for nurse to nurse, awaiting a doc to doc sg report at this time. 21:04 Reassessment: pt ambulatory to ER front lobby, refusing to come back into the dept. at sg this time, security with patient in the lobby at this time, awaiting GAETANO for assistance to get pt back to exam room. 21:17 Reassessment: pt back in ED exam room at this time, [place] with patient, pt is sg cooperative and nonviolent toward staff at this time, reports that she does not want to go to the psych facility, if she has to go there she will kill her self, reports not plan on how to harm herself at this time, pt denies homicidal ideations, awaiting pt transport to psych facility at this time. 21:21 Reassessment: PATIENT SPEAKING WITH OFFICER AT BEDSIDE, PATIENT STATED SHE TOOK 20 vc LORAZEPAM. SHE STATES THAT IF WE MAKE HER TRANSFER TO "[facility], I WILL KILL MYSELF.". 21:35 Reassessment: PATIENT REFUSES TO GET ONTO EMS STRETCHER AFTER INSTRUCTED TO GET ON, vc PATIENT IS HANDCUFFED AND PLACED ON STRETCHER BY [facility] MAT[facility]WS. ACCORDING TO EMS NEW POLICY STATES A HOOD FITTER IS REQUIRED TO RIDE ALONG WHEN PATIENT HAS AN LESLIE, [place] [employer] TO RIDE ALONG WITH EMS. Overdose: 16:23 Patient took 21 tabs of clonazepan 0.5 mg. iw Vital Signs: 15:41 BP 120 / 82; Pulse 101; Resp 17 S; Temp 98.7(TE); Pulse Ox 99% on R/A; Weight 90.72 kg ca1 (R); Height 5 ft. 7 in. (170.18 cm) (R); 16:49 BP 106 / 66; Pulse 86; Resp 16; Pulse Ox 100% ; bp 17:43 BP 117 / 66; Pulse 84; Resp 16; Pulse Ox 100% ; bp 15:41 Body Mass Index 31.32 (90.72 kg, 170.18 cm) ca1 ED Course: 15:35 Patient arrived in ED. iw 15:37 Arvind Glass PA is PHCP. m 15:37 Saul Seth MD is Attending Physician. m 15:39 Tomas Burr, ROCÍO is Primary Nurse. bp 15:44 Triage completed. ca1 15:45 Safety Checks: Personal items have been removed. The door is open or patient has been bp placed in a hallway bed/chair. There are no family/friend visitors at this time Sitter not present at this time. 15:45 Patient has correct armband on for positive identification. Placed in gown. Bed in low bp position. Call light in reach. Side rails up X2. 15:46 Arm band placed on right wrist. ca1 16:00 Safety Checks: Personal items have been removed. The door is open or patient has been bp placed in a hallway bed/chair. There are no family/friend visitors at this time Sitter not present at this time. 16:13 Initial lab(s) drawn, by me, sent to lab. Inserted saline lock: 20 gauge in right iw antecubital area, using aseptic technique. Blood collected. 16:15 Safety Checks: Personal items have been removed. The door is open or patient has been bp placed in a hallway bed/chair. There are no family/friend visitors at this time Sitter not present at this time. 16:30 Safety Checks: Personal items have been removed. The door is open or patient has been bp placed in a hallway bed/chair. There are no family/friend visitors at this time Sitter not present at this time. 16:45 Safety Checks: Personal items have been removed. The door is open or patient has been bp placed in a hallway bed/chair. There are no family/friend visitors at this time Sitter not present at this time. 17:00 Safety Checks: Personal items have been removed. The door is open or patient has been bp placed in a hallway bed/chair. There are no family/friend visitors at this time Sitter not present at this time. 17:03 contacted [facility] to have pt evaluated by screener. bd 17:15 Safety Checks: Personal items have been removed. The door is open or patient has been bp placed in a hallway bed/chair. There are no family/friend visitors at this time Sitter not present at this time. 17:30 Safety Checks: Personal items have been removed. The door is open or patient has been bp placed in a hallway bed/chair. There are no family/friend visitors at this time Sitter not present at this time. 18:24 pt evaluated by Hubert with [facility] via i pad, Hubert recommends in pt. bd 18:25 pt trying to leave, was instructed by Arvind Glass to notify mental health deputy to have emergency group home order filled out for pt. 19:02 faxed chart to [facility]. bd 19:35 Angelica from [facility] called to do Nurse to Nurse. Spoke with Charge Nurse. tt3 21:40 No provider procedures requiring assistance completed. vc 21:40 Patient did not have IV access during this emergency room visit. PATIENT REMOVED IV BY vc SELF ON THE PREVIOUS SHIFT. Administered Medications: 16:00 Drug: NS 0.9% 1000 ml Route: IV; Rate: 1 bolus; Site: right forearm; bp 18:57 Follow up: IV Status: Completed infusion; IV Intake: 1000ml bp Intake: 18:57 IV: 1000ml; Total: 1000ml. bp Outcome: 20:20 ER care complete, transfer ordered by MD. lehman 21:40 Patient left the ED. vc 21:40 Transferred by ground EMS [facility] [facility].. to other acute care vc facility: [facility].. 21:40 Condition: good 21:40 Instructed on the need for transfer. Signatures: Rosario Driscoll Steven, Arvind Simeon RN, PA PA jmm Williams, Irene, RN RN iw Peltier, Brian, RN RN bp Letty Mckeon RN RN ca1 Fidelina Berg RN RN vc Griffin Arzate tt3 Corrections: (The following items were deleted from the chart) 15:48 15:41 Risk Assessment: Do you want to hurt yourself or someone else? Patient reports no ca1 desire to harm self or others. ca1 22:14 22:07 Reassessment: vc vc
[2020-08-08 21:47] VITALS: TEMP 98.7
[2020-08-08 21:49] VITALS: O2SAT 100
[2020-08-08 21:50] VITALS: BP 117/66
--- NOTE | 2020-08-09 11:22 | EKG ---
Test Date: 2020-08-08 Test Time: 16:37:38 Shop Lead: BRYSON MEASUREMENT RESULTS: Intervals: Rate: 82 CO: 156 QRSD: 88 QT: 394 QTc: 460 [place]: P: 63 CO: 156 QRS: 56 T: 21 INTERPRETIVE STATEMENTS: Normal sinus rhythm Normal ECG Compared to ECG 05/17/2018 03:55:19 T-wave abnormality no longer present Electronically Signed On 08-09-20 11:20:18 CDT by Fredo Vaca
== END 2020-08-08 21:40 ==
LOC: ER 15:30
DX: T42.4X2A Poisoning by benzodiazepines, intentional self-harm, initial encounter (principal); F41.8 Other specified anxiety disorders; F17.210 Nicotine dependence, cigarettes, uncomplicated; Z88.5 Allergy status to narcotic agent
CPT/HCPCS: 96361; 93005; 85025; 80048; 36415; 80320; 80329 ×2; 81025; 85610; 80076; 80307 ×8; 85730; 81003; 96360; 99285; J7030

== ENCOUNTER 2021-07-26 11:54 | Emergency (ER) | payer BC ==
--- OUTSIDE RECORDS SUMMARY | 2021-07-26 11:58 | XMS REPORT | Continuity of Care Document ---
:2000 Author Organization [facility] t Address [address] [place] [address] Care Team Providers Name Role Phone Trip [place] Attending Clinician Bridgette Bell Attending Clinician Problems Condition Condition Condition Status Onset Resolution Last Treating Co mments Source Name Details Category Date Date Treatment Clinician Date Shortness Problem 2018-06-04 Me moria of breath 12:41:52 l [place] Shortness of breath 06/04/2018 [place] Morbid Problem Active 2018-06-04 Memor ia obesity 12:41:52 l (disorder) Morbid Herm luz elena obesity (disorder) Active Problem 06/04/2018 [facility] [place] History of Past Illness Condition Condition Condition Status Onset Resolution Last Treating Co mments Source Name Details Category Date Date Treatment Clinician Date Chest Problem 2017-2018-06-04 2018-06-04 M emoria pain, 02-26 12:41:52 12:41:52 l unspecifie Chest 05:00: Adore nn d pain, 00 unspecifie d 02/26/2018 06/04/2018 [place] Allergies, Adverse Reactions, Alerts Allergy Allergy Status Severity Reaction(s) Onset Inactive Treating Comm ents Source Name Type Date Date Clinician codeine codeine Active Krish Katz Social History Smoking Status Start Date Stop Date Source Social History [facility] [place] Medications Ordered Filled Start Stop Current Ordering Indication Dosage Frequency Signature Comments Components Source Medication Medication Date Date Medication? Clinician (SIG) Name Name Naproxen No 500 mg = 1 Mem oria 500 MG 02-26 tab, PO, l Enteric 06:18: BID, X 10 Adore nn Coated 00 day, # 20 Tablet tab, 0 [Naprosyn] Refill(s) Esomeprazol Yes 40 mg = 1 M emoria e 40 MG 3-31 cap, PO, l Enteric 06:18: Daily, # Daniel n Coated 00 30 cap, 0 Capsule Refill(s) [Nexium] Esomeprazol 2018-0 Yes 40 mg = 1 M emoria e 40 MG 3-31 cap, PO, l Enteric 06:18: Daily, # Daniel n Coated 00 30 cap, 0 Capsule Refill(s) [Nexium] Naproxen 2018-0 No 500 mg = 1 Mem oria 500 MG 3-31 tab, PO, l Enteric 06:18: BID, X 10 Adore nn Coated day, # 20 Tablet tab, 0 [Naprosyn] Refill(s) Ketorolac 2017-0 No 30 mg, Memori a 02-26 Route: l 05:22: IVP, ONCE, Dosing Weight 95.455, kg, Priority: STAT, Start date: 02/26/18 0:22:00 CDT, Stop date: 02/26/18 0:22:00 CDT GI cocktail 0 No 30 mL, Figuero[place] alyssa 02-26 Route: PO, l 05:22: Dosing Weight 95.455, kg, ONCE, STAT, Start date: 02/26/18 0:22:00 CDT, Stop date: 02/26/18 0:22:00 CDT Famotidine 0 No 20 mg, Memor ia 02-26 Route: l 05:22: IVP, ONCE, Dosing Weight 95.455, kg, Priority: STAT, Start date: 02/26/18 0:22:00 CDT, Stop date: 02/26/18 0:22:00 CDT Ketorolac 2017-0 No 30 mg, Memori a 02-26 Route: l 05:22: IVP, ONCE, Dosing Weight 95.455, kg, Priority: STAT, Start date: 02/26/18 0:22:00 CDT, Stop date: 02/26/18 0:22:00 CDT GI cocktail 2017-0 No 30 mL, Figueroa alyssa 02-26 Route: PO, l 05:22: Dosing Weight 95.455, kg, ONCE, STAT, Start date: 02/26/18 0:22:00 CDT, Stop date: 02/26/18 0:22:00 CDT Famotidine No 20 mg, Memor ia 02-26 Route: l 05:22: IVP, ONCE, [place] Dosing Weight 95.455, kg, Priority: STAT, Start date: 02/26/18 0:22:00 CDT, Stop date: 02/26/18 0:22:00 CDT Dicyclomine Yes 20 mg = 1 M emoria Hydrochlori 3-13 tab, PO, l de 20 MG 20:09: QID-Before Her [place] Oral Tablet 00 Meals, PRN [Bentyl] Bowel Movements, # 120 tab, 1 Refill(s), [facility] Dicyclomine Yes 20 mg = 1 M emoria Hydrochlori 3-13 tab, PO, l de 20 MG 20:09: QID-Before Her [place] Oral Tablet 00 Meals, PRN [Bentyl] Bowel Movements, # 120 tab, 1 Refill(s), Pharmacy: [facility] Advair HFA Yes 1 puff, Figueroa alyssa 115 mcg-21 -03 INHALATION l mcg/inh 20:10: , BID, # Daniel n inhalation 00 12 gm, 3 aerosol Refill(s), with Pharmacy: kg [facility] [id number] Albuterol Yes 2.49 mg = Mem oria 0.83 MG/ML 03 3 mL, NEB, l Inhalant 20:10: Q6H, PRN Adore nn Solution 00 as needed for shortness of breath, # 120 ea, 3 Refill(s), [facility] Triamcinolo Yes 1 appl, Mem oria ne 1-03 TOP, TID, l Acetonide 1 20:10: PRN For Her [place] MG/ML 00 rash, X 14 Topical day, # 60 Lotion ml, 0 Refill(s), [facility] Nebulizer Yes 1 ea, Memoria -03 MISC, l 20:10: ONCALL, [place] with adult mask, tubing and accessorie s, # 1 ea, 0 Refill(s) 200 ACTUAT Yes 180 Memoria Albuterol 1-03 microgram l 0.09 20:10: = 2 puff, [place] MG/ACTUAT 00 INHALER, Metered Q6H, PRN Dose wheezing, Inhaler coughing, [Proventil] or shortness of breath, # 3 ea, 11 Refill(s), Pharmacy: [facility] montelukast Yes 10 mg = 1 M emoria 10 mg oral 1-03 tab, PO, l tablet 20:10: Bedtime, # Adore nn 00 30 tab, 11 Refill(s), Pharmacy: [facility] predniSONE Yes 60 mg = 3 Me moria 20 mg oral 1-03 tab, PO, l tablet 20:10: Daily, [place] 00 Take 3 tablets for 60 mg dose, X 5 day, # 15 tab, 0 Refill(s), Pharmacy: [facility] Advair HFA Yes 1 puff, Figueroa alyssa 115 mcg-21 1-03 INHALATION l mcg/inh 20:10: , BID, # Daniel n inhalation 00 12 gm, 3 aerosol Refill(s), with Pharmacy: [facility] [facility] [facility] Albuterol Yes 2.49 mg = Mem oria 0.83 MG/ML 1-03 3 mL, NEB, l Inhalant 20:10: Q6H, PRN Adore nn Solution 00 as needed for shortness of breath, # 120 ea, 3 Refill(s), Pharmacy: [facility] Triamcinolo Yes 1 appl, Mem oria ne 1-03 TOP, TID, l Acetonide 1 20:10: PRN For Her [place] MG/ML 00 rash, X 14 Topical day, # 60 Lotion ml, 0 Refill(s), Pharmacy: [facility] Nebulizer Yes 1 ea, Memoria 1-03 MISC, l 20:10: ONCALL, [place] 00 with adult mask, tubing and accessorie s, # 1 ea, 0 Refill(s) 200 ACTUAT Yes 180 Memoria Albuterol 1-03 microgram l 0.09 20:10: = 2 puff, [place] MG/ACTUAT 00 INHALER, Metered Q6H, PRN Dose wheezing, Inhaler coughing, [Proventil] or shortness of breath, # 3 ea, 11 Refill(s), Pharmacy: [facility] montelukast Yes 10 mg = 1 M emoria 10 mg oral 1-03 tab, PO, l tablet 20:10: Bedtime, # Adore nn 00 30 tab, 11 Refill(s), Pharmacy: [facility] predniSONE 2018 Yes 60 mg = 3 Me moria 20 mg oral 1-03 tab, PO, l tablet 20:10: Daily, [place] 00 Take 3 tablets for 60 mg dose, X 5 day, # 15 tab, 0 Refill(s), Pharmacy: [facility] 200 ACTUAT 20180 No 2 puff, Figueroa alyssa Albuterol 1-03 INHALER, l 0.09 19:45: Q6H, PRN [place] MG/ACTUAT 00 wheezing, Metered coughing, Dose or Inhaler shortness [Proventil] of breath, # 1 ea, 1 Refill(s) 200 ACTUAT 20180 No 2 puff, Figueroa alyssa Albuterol 1-03 INHALER, l 0.09 19:45: Q6H, PRN [place] MG/ACTUAT 00 wheezing, Metered coughing, Dose or Inhaler shortness [Proventil] of breath, # 1 ea, 1 Refill(s) Vital Signs Vital Name Observation Time Observation Value Comments Source Systolic (mm Hg) 2018-02-26 06:05:00 Figueroa rial [place] Diastolic (mm Hg) 2018-02-26 06:05:00 Mem orial [place] Heart Rate 2018-02-26 06:05:00 [facility] [place] Respitory Rate 2018-02-26 06:05:00 Williamori al [place] Weight 2018-02-26 05:12:00 [facility] [place] Systolic (mm Hg) 2018-02-26 05:12:00 Figueroa rial [place] Diastolic (mm Hg) 2018-02-26 05:12:00 [facility] orial [place] Heart Rate 2018-02-26 05:12:00 [facility] [place] Respitory Rate 2018-02-26 05:12:00 Memori al [place] Height 2018-02-26 05:12:00 170.18 cm [facility] [place] BMI Calculated 2018-02-26 05:12:00 Memori al [place] Temperature Oral (F) 2018-02-26 05:12:00 98.1 F [facility] [place] BMI Calculated 2018-02-08 19:36:00 Memori al [place] Systolic (mm Hg) 2018-02-08 19:36:00 Figueroa rial [place] Diastolic (mm Hg) 2018-02-08 19:36:00 Mem orial [place] Weight 2018-02-08 19:36:00 [facility] [place] Height 2018-02-08 19:36:00 167.64 cm [facility] [place] Heart Rate 2018-02-08 19:36:00 [facility] [place] Height 2017-12-01 19:39:00 166.37 cm [facility] [place] BMI Calculated 2017-12-01 19:39:00 Memori al [place] Weight 2017-12-01 19:39:00 [facility] [place] Systolic (mm Hg) 2017-12-01 19:39:00 Figueroa rial [place] Diastolic (mm Hg) 2017-12-01 19:39:00 Mem orial [place] Temperature Oral (F) 2017-12-01 19:39:00 98.8 F [facility] [place] Heart Rate 2017-12-01 19:39:00 [facility] [place] Procedures This patient has no known procedures. Encounters Start End Encounter Admission Attending Care Care Encounter Source Date/Time Date/Time Type Type Clinicians Facility Department ID 2018-02-26 2018-02-26 Emergency nullFlavo [facility] [id number] Memoria 05:07:00 06:30:00 r [place] 01 l [place] Adore 2018-02-26 2018-02-26 Emergency nullFlavo [facility] [id number] Memoria 05:07:00 06:30:00 r [place] 01 l [place] Adore 2018-02-26 2018-02-26 [id number] 00:07:00 01:30:00 Trip 2018-02-08 2018-02-09 Outpatient nullFlavo [facility] [id number] Memoria 19:30:00 04:59:59 r Primary 01 l Care [place] [facility] 2018-02-08 2018-02-09 Outpatient nullFlavo [facility] [id number] Memoria 19:30:00 04:59:59 r Primary 01 l Namita Katz [facility] 2018-02-08 2018-02-08 Outpatient Ray [facility] [id number] 14:30:00 23:59:59 [place] 01 [place] 2018-02-08 2018-02-08 Outpatient ELVI ROCÍO [id number] Memoria 14:30:00 14:30:00 01 l [place] 2017-12-01 2017-12-02 Outpatient nullFlavo [facility] [id number] Memoria 19:45:00 05:59:59 r Primary 00 l Namita Katz [facility] 2017-12-01 2017-12-02 Outpatient nullFlavo [facility] [id number] Memoria 19:45:00 05:59:59 r Primary 00 l [facility] 2017-12-01 2017-12-01 Outpatient Ray [facility] [id number] 13:45:00 23:59:59 [place] 00 [place] 2017-12-01 2017-12-01 Outpatient ELVI ROCÍO [id number] Memoria 13:45:00 13:45:00 00 l [place] Results Test Description Test Time Test Comments Results Result Comments Source HEMATOLOGY 2018-02-26 <0.27 [facility] [place] 05:56:00 HEMATOLOGY 2018-02-26 <0.27 [facility] [place] 05:56:00 CARDIAC ENZYMES 2018-02-26 <0.02 [facility] [place] 05:51:00 CARDIAC ENZYMES 2018-02-26 <0.02 [facility] [place] 05:51:00 CHEM PANEL 2018-02-26 3.6 [facility] nn 05:23:00 CHEM PANEL 2018-02-26 05:23:00 Test Item Value Reference Range Interpretation Comme nts B/C Ratio (test code = B/C Ratio) 11 1 6-25 [facility] [id number] 05:23:0014.8[facility]annCHE[facility] PANEL 2018-02-26 05:23:000.1[facility]CHE[facility] [id number] 05:23:67823Yvnhzslf HermannCHEM [id number] 05:23:00 Test Item Value Reference Range Interpretation Comments A/G Ratio (test code = A/G Ratio) 1.0 1 0.7-1.6 [facility] [id number] 05:23:003.6[facility]annCHE[facility] PANEL 2018-02-26 05:23:00 Test Item Value Reference Range Interpretation Comments B/C Ratio (test code = B/C Ratio) 11 1 6-25 [facility] [id number] 05:23:0014.8[facility]annCHE[facility] PANEL 2018-02-26 05:23:000.1[facility] RFAOA2035-52-02 05:23:003.6[facility] SLDGF2452-68-52 05:23:007.2[facility] XTZPC8392-83-33 05:23:0087[facility]CHE[facility] BSROK1246-58-45 05:23:0019[facility]CHE[facility] XHUWX6543-54-20 05:23:0032[facility] [id number] 05:23:50731 [facility] GHOQW5625-87-88 05:23:0090[facility]annCHE[facility] PANEL 2018-02-26 05:23:0024[facility]annCHE[facility] PCLHH6260-62-50 05:23:008.8[facility]annCHE[facility] XLQMY0093-95-40 05:23:73379Zkszythh HermannCHEM JHECT3918-62-54 05:23:000.81[facility]annCHE[facility] JUWNV6740-43-92 05:23:009[facility] FVGQJ9690-49-25 05:23:003.8[facility]CHE[facility] [id number] 05:23:10104 [facility] VypxtgsTFIIKSEWSHMAD4462-44-60 05:23:00Negative (02/26/18 12:23 AM) Memorial LgvdjqvWUASMHNUOY4419-81-47 05:23:008.9[facility] HermannHEMATOLOGY 2018-02-26 05:23:0012.3[facility]annCHE[facility] JZQZA1715-27-48 05:23:003.emorial PkaeiulZXWBGTHQJC7265-09-85 05:23:00 Test Item Value Reference Range Interpretation Comments MCH (test code = MCH) 26.0 pg 27.0-31.0 Memorial LbhrnnoFPZRAXSTLR1086-17-77 05:23:0080.0[facility] HermannHEMATOLOGY 2018-02-26 05:23:004.75[facility] WbmyyltILOYTJZFGH3503-32-74 05:23:0038.0[facility] UsfmvhuVQEYWTRJMF0937-31-10 05:23:0014.3[facility] PsqtjpvFIWVFKYEXU6034-33-53 05:23:0032.4[facility] JzloqywTKDWMXOFMP7964-46-66 05:23:009.1[facility] [place] JKNVRTZCOT0253-81-31 05:23:29868Ixxdvzxv PydlzzdUVSQXUXHXK4407-20-78 05:23:000.1 [facility] XfjpgbxRWNOHCPSSC3106-14-32 05:23:004.4[facility] HermannHEMATOLOGY 2018-02-26 05:23:000.5[facility] VjshmroLEETZFMDWK9384-46-06 05:23:005.2[facility] ZqdsahnCGZPJMELZF6930-84-31 05:23:000.8[facility] IjeeszdCGCNTEDLIM8615-36-09 05:23:003.1[facility]orial KdeobntHJMBMKGVBI9561-48-07 05:23:000.8[facility] [place] QCLQORHLVJ6889-66-97 05:23:0050.1[facility] FwwppxcARTNIQDMXD1487-14-09 05:23:00 34.5Memorial KbvznmuGWBACAVOOE5818-09-98 05:23:009.4[facility] HermannCHEM PANEL 2018-02-26 05:23:007.2[facility]annCHEM RKVLA8382-43-41 05:23:0087[facility]annCHEM ZXRZV3201-02-98 05:23:0019[facility] HermannCHEM WBGUQ7243-59-81 05:23:0032[facility] HermannCHEM EOSNG0810-46-89 05:23:41922Qdztzaru HermannCHEM RRNNG8736-83-41 05:23:0090[facility]annCHEM XQWJH7650-66-04 05:23:0024 [facility]annCHE[facility] SWFOA5396-54-86 05:23:008.8[facility] HermannCHEM PANEL 2018-02-26 05:23:27956Tdxmzlen HermannCHEM FYKLS7636-48-18 05:23:000.81[facility] HermannCHEM JHFBT7910-46-00 05:23:009[facility]annCHEM BQDTI6502-41-34 05:23:003.8[facility] HermannCHEM MROIZ9571-86-96 05:23:28863Bjpnmezv [place] KYCZNHLCJTOUE1062-98-44 05:23:00Negative (02/26/18 12:23 AM)[facility] [place] CBSYJDFLYM9837-57-96 05:23:008.9[facility] TjqffkhLRCYNSDVEE6526-79-29 05:23:00 12.3[facility]orial NjspolePIYGGLTALS8153-64-53 05:23:00 Test Item Value Reference Range Interpretation Comments MCH (test code = MCH) 26.0 pg 27.0-31.0 Memorial PlqyingQXMFRHFIRI1188-05-16 05:23:0080.0[facility] HermannHEMATOLOGY 2018-02-26 05:23:004.75[facility] XedruhaDAUIEXQZGI9009-09-03 05:23:0038.0[facility]orial GtdqvokQATCGIJPXY2496-48-83 05:23:0014.3[facility]orial EbbbcpvUFPKHZKCNU6593-41-94 05:23:0032.4[facility] DntooucKMRKRUFRBM1955-09-10 05:23:009.1[facility] [place] OIVZBXKAGZ5349-83-57 05:23:98408Fyxbcury HfzwjboDSAVCDEAEI9565-71-22 05:23:000.1 Memorial FvdbxnhTVDZDPCSUV6037-56-18 05:23:004.4[facility] HermannHEMATOLOGY 2018-02-26 05:23:000.5[facility] HermannCHEM VWZQH7032-67-67 05:23:22130Xstlayog FaaoaweCVGOYGCZEJ4439-58-98 05:23:005.2[facility]orial PddakauBTGDPHKULV1867-78-16 05:23:000.8[facility]orial LmqhsqgJLMTODVGTT0995-87-34 05:23:003.1[facility] [place] FZRQZHLKJA7919-07-71 05:23:000.8[facility]orial CfrnigzZJTNEOQNFZ9791-48-85 05:23:00 50.1[facility]orial GtshzwxAHJWHTPDII6984-57-60 05:23:0034.5[facility] HermannHEMATOLOGY 2018-02-26 05:23:009.4[facility] HermannCHEM GXZHG5331-91-81 05:23:00 Test Item Value Reference Range Interpretation Comments A/G Ratio (test code = A/G Ratio) 1.0 1 0.7-1.6 [facility]
[2021-07-26 12:52] LABS: Absolute Lymphocytes (CBC) 1.8 K/uL (0.7-4.9); Hematocrit 37.5 % (36.0-45.0); Lymphocytes % 29.6 % (15.3-44.8); MPV 8.3 fL (7.6-11.3); RBC Red Blood Cell Count 4.78 M/uL (3.86-4.86)
[2021-07-26 12:56] LABS: Protime INR 1.02
--- NOTE | 2021-07-26 13:16 | ER ---
Nurse's Notes [facility] Name: Parisa Hernandez Age: 21 yrs Sex: Female : 2000 Arrival Date: 07/26/2021 Time: 12:01 Bed 18 Private MD: Diagnosis: Bipolar disorder, unspecified;Adjustment disorder with disturbance of conduct;Suicidal ideations Presentation: 07/26 12:26 Chief complaint: Patient states: pt states that she has a "history of bipolar tr6 depression and believes she was having an episode due to all the triggers she's currently experiencing and stated that she was going to kill herself while in the police car." pt states that "now she's calm and does not have SI or HI.". Coronavirus screen: At this time, unable to obtain information related to travel outside the [place] Ebola Screen: No symptoms or risks identified at this time. Initial Sepsis Screen: Does the patient meet any 2 criteria? No. Patient's initial sepsis screen is negative. Does the patient have a suspected source of infection? No. Patient's initial sepsis screen is negative. Risk Assessment: Do you want to hurt yourself or someone else? Patient reports no desire to harm self or others. Onset of symptoms is unknown. 12:26 Method Of Arrival: Law Enforcement: Axel MATTHEWS tr6 12:26 Acuity: ENA 2 tr6 Triage Assessment: 13:26 General: Appears in no apparent distress. comfortable, Behavior is calm, cooperative, tr6 appropriate for age. Pain: Denies pain. EENT: No deficits noted. Neuro: No deficits noted. Cardiovascular: No deficits noted. Respiratory: No deficits noted. GI: No deficits noted. : No deficits noted. Derm: No deficits noted. Musculoskeletal: No deficits noted. Historical: - PMHx: 13:26 Anxiety; Asthma; Depression; Bipolar disorder; tr6 - Family history:: not pertinent. - Social history:: Smoking status: unknown. Screenin:28 Nutritional screening: No deficits noted. Tuberculosis screening: No symptoms or risk tr6 factors identified. The patient passed the bedside swallow screening. Oral medications may be given as ordered. Contact Physician for further diet orders. Fall Risk None identified. Assessment: 14:19 Reassessment: Attempted to call patient with number on file as she left her DL. No ss answer. Will attempt to call again. Vital Signs: 13:25 BP 138 / 88; Pulse 89; Resp 18; Temp 97.9; Pulse Ox 100% on R/A; Pain 0/10; tr6 ED Course: 12:01 Patient arrived in ED. ds1 12:06 Anahi Estrada, RN is Primary Nurse. tr6 12:22 Ronnie Doan MD is Attending Physician. [facility] 12:27 Triage completed. tr6 12:28 No apparent distress. Resting quietly. Awaiting ED provider evaluation. Safety Checks: tr6 A family member and/or friend is present and encouraged to stay. helicopter crew chief at bedside. 12:28 Patient has correct armband on for positive identification. Fall risk band placed. tr6 Placed in gown. Bed in low position. Call light in reach. Side rails up X2. Pulse ox on. NIBP on. Door closed. Noise minimized. Visitors limited. Lights dimmed. Moved to private room. Warm blanket given. Patient is placed in psych hold. 12:28 No provider procedures requiring assistance completed. Patient maintains SpO2 tr6 saturation greater than 95% on room air. 12:40 Inserted saline lock: 18 gauge in right antecubital area, using aseptic technique. tr6 Blood collected. 13:16 Johnathan King MD is Referral Physician. [facility] 13:26 IV discontinued, intact, bleeding controlled, No redness/swelling at site. Pressure tr6 dressing applied. Administered Medications: No medications were administered Outcome: 13:15 Discharge ordered by . [facility] 13:26 Discharged to home tr6 13:26 Condition: good 13:26 Discharge instructions given to patient. 13:46 Patient left the ED. 5 Signatures: Ronnie Doan MD MD cha Sanford, Demi ds1 Chio Vargas RN RN ss Martinez, Maria 5 Anahi Estrada, ROCÍO RN tr6 Corrections: (The following items were deleted from the chart) 13:26 13:26 General: Appears see triage assessment. tr6 tr6
--- NOTE | 2021-07-26 13:16 | EDPHYS ---
Physician Documentation [facility] Name: Parisa Hernandez Age: 21 yrs Sex: Female : 2000 Arrival Date: 07/26/2021 Time: 12:01 Bed 18 Private MD: ED Physician Ronnie Doan HPI: 07/26 13:10 This 21 yrs old Black Female presents to ER via Law Enforcement with complaints of LESLIE. hiram 13:10 got upset, stated i want to kill myself, not feeling that way now. Onset: The hiram symptoms/episode began/occurred just prior to arrival. Severity of symptoms: At their worst the symptoms were mild moderate in the emergency department the symptoms have improved moderately. The patient has experienced similar episodes in the past, several times. Historical: - PMHx: 13:26 Anxiety; Asthma; Depression; Bipolar disorder; tr6 - Family history:: not pertinent. - Social history:: Smoking status: unknown. ROS: 13:10 Constitutional: Negative for fever, chills, and weight loss, Eyes: Negative for injury, hiram pain, redness, and discharge, ENT: Negative for injury, pain, and discharge, Neck: Negative for injury, pain, and swelling, Cardiovascular: Negative for chest pain, palpitations, and edema, Respiratory: Negative for shortness of breath, cough, wheezing, and pleuritic chest pain, Abdomen/GI: Negative for abdominal pain, nausea, vomiting, diarrhea, and constipation, Back: Negative for injury and pain, : Negative for injury, bleeding, discharge, and swelling, MS/Extremity: Negative for injury and deformity, Skin: Negative for injury, rash, and discoloration, Neuro: Negative for headache, weakness, numbness, tingling, and seizure, Allergy/Immunology: Negative for hives, rash, and allergies, Endocrine: Negative for neck swelling, polydipsia, polyuria, polyphagia, and marked weight changes, Hematologic/Lymphatic: Negative for swollen nodes, abnormal bleeding, and unusual bruising. 13:10 Psych: Positive for anxiety, depression, suicidal ideation. Exam: 13:10 Constitutional: This is a well developed, well nourished patient who is awake, alert, hiram and in no acute distress. Head/Face: Normocephalic, atraumatic. Eyes: Pupils equal round and reactive to light, extra-ocular motions intact. Lids and lashes normal. Conjunctiva and sclera are non-icteric and not injected. Cornea within normal limits. Periorbital areas with no swelling, redness, or edema. ENT: Nares patent. No nasal discharge, no septal abnormalities noted. Tympanic membranes are normal and external auditory canals are clear. Oropharynx with no redness, swelling, or masses, exudates, or evidence of obstruction, uvula midline. Mucous membranes moist. Neck: Trachea midline, no thyromegaly or masses palpated, and no cervical lymphadenopathy. Supple, full range of motion without nuchal rigidity, or vertebral point tenderness. No Meningismus. Chest/axilla: Normal chest wall appearance and motion. Nontender with no deformity. No lesions are appreciated. Cardiovascular: Regular rate and rhythm with a normal S1 and S2. No gallops, murmurs, or rubs. Normal PMI, no JVD. No pulse deficits. Respiratory: Lungs have equal breath sounds bilaterally, clear to auscultation and percussion. No rales, rhonchi or wheezes noted. No increased work of breathing, no retractions or nasal flaring. Abdomen/GI: Soft, non-tender, with normal bowel sounds. No distension or tympany. No guarding or rebound. No evidence of tenderness throughout. Back: No spinal tenderness. No costovertebral tenderness. Full range of motion. Skin: Warm, dry with normal turgor. Normal color with no rashes, no lesions, and no evidence of cellulitis. MS/ Extremity: Pulses equal, no cyanosis. Neurovascular intact. Full, normal range of motion. Neuro: Awake and alert, GCS 15, oriented to person, place, time, and situation. Cranial nerves II-XII grossly intact. Motor strength 5/5 in all extremities. Sensory grossly intact. Cerebellar exam normal. Normal gait. Psych: Awake, alert, with orientation to person, place and time. Behavior, mood, and affect are within normal limits. 13:10 Musculoskeletal/extremity: DVT Exam: No signs of deep vein thrombosis. no pain, no swelling, no tenderness, negative Homans' sign noted on exam, no appreciated bluish discoloration, no erythema, no increased warmth. Vital Signs: 13:25 BP 138 / 88; Pulse 89; Resp 18; Temp 97.9; Pulse Ox 100% on R/A; Pain 0/10; tr6 MDM: 12:22 Patient medically screened. [facility] 13:11 Data reviewed: vital signs, nurses notes, lab test result(s), CBC, electrolytes, [facility] hepatic panel. Data interpreted: security monitor: rate is 85 beats/min, rhythm is regular, Pulse oximetry: on room air is 100 %. Test interpretation: by ED physician or midlevel provider: ECG. 07/26 12:22 Order name: Acetaminophen [facility] 07/26 12:22 Order name: Basic Metabolic Panel [facility] 07/26 12:22 Order name: CBC with Diff [facility] 07/26 12:22 Order name: ETOH Level [facility] 07/26 12:22 Order name: Hepatic Function [facility] 07/26 12:22 Order name: PT-INR [facility] 07/26 12:22 Order name: Ptt, Activated [facility] 07/26 12:22 Order name: Salicylate [facility] 07/26 12:22 Order name: Urine Drug Screen [facility] 07/26 12:22 Order name: EKG; Complete Time: 12:23 [facility] 07/26 12:23 Order name: Acetaminophen Level [facility] 07/26 12:23 Order name: Basic Metabolic Panel [facility] 07/26 12:23 Order name: CBC with Automated Diff [facility] 07/26 13:24 Order name: Urine Dipstick-Ancillary [facility] 07/26 12:22 Order name: IV Saline Lock; Complete Time: 12:40 [facility] 07/26 12:22 Order name: Labs collected and sent; Complete Time: 12:40 [facility] 07/26 12:22 Order name: Suicide Screening ([place]); Complete Time: 12:40 [facility] 07/26 12:22 Order name: Urine Dipstick-Ancillary (obtain specimen); Complete Time: 13:25 [facility] Administered Medications: No medications were administered Disposition Summary: 07/26/21 13:15 Discharge Ordered Location: Home hiram Problem: new hiram Symptoms: have improved hiram Condition: Stable hiram Diagnosis - Bipolar disorder, unspecified hiram - Adjustment disorder with disturbance of conduct hiram - Suicidal ideations hiram Followup: hiram - With: Private Physician - When: 2 - 3 days - Reason: Recheck today's complaints, Continuance of care, Re-evaluation by your physician Followup: hiram - With: Johnathan King MD - When: 2 - 3 days - Reason: Recheck today's complaints, Re-evaluation by your physician Discharge Instructions: - Discharge Summary Sheet hiram - Adjustment Disorder, Adult hiram - Suicidal Feelings: How to Help Yourself hiram - Helping Someone Who is Suicidal hiram - Stress, Adult hiram - Mixed Bipolar Disorder hiram Forms: - Medication Reconciliation Form hiram - Thank You Letter hiram - Antibiotic Education hiram - Prescription Opioid Use hiram Signatures: Dispatcher [employer] EDRonnie Flores MD MD cha Ramnanan, Tiffany RN RN tr6 Corrections: (The following items were deleted from the chart) 13:18 12:22 EKG - Nurse/Tech ordered. hiram tr6
[2021-07-26 13:25] LABS: Urine Blood Negative (Negative); Urine Glucose Negative (Negative); Urine Protein Negative (Negative); Urine Specific Gravity >=1.030 (1.005-1.030)
[2021-07-26 13:25] LABS: ALT/SGPT 23 U/L (12-78); AST/SGOT 9 U/L (15-37); Albumin 3.5 g/dL (3.4-5.0); Alkaline Phosphatase 93 U/L (45-117); BUN Blood Urea Nitrogen 12 mg/dL (7-18); Bicarbonate 27 mmol/L (21-32); Bilirubin Direct < 0.1 mg/dL (0-0.2); Bilirubin Total 0.2 mg/dL (0.2-1.0); Glucose Level 88 mg/dL (74-106); Potassium 3.7 mmol/L (3.5-5.1); Protein, Total 7.4 g/dL (6.4-8.2); Sodium Level 142 mmol/L (136-145)
[2021-07-26 13:57] LABS: Barbiturates NEGATIVE (NEGATIVE); Benzodiazepines NEGATIVE (NEGATIVE); Cocaine NEGATIVE (NEGATIVE); METHAMPHETAM NEGATIVE (NEGATIVE); Methadone NEGATIVE (NEGATIVE); Opiates NEGATIVE (NEGATIVE); Phencyclidine NEGATIVE (NEGATIVE); THC Cannibis POSITIVE (NEGATIVE)
[2021-07-26 14:02] VITALS: BP 138/88; TEMP 97.9; O2SAT 100
== END 2021-07-26 13:46 | disposition home or self-care (01) ==
LOC: ER 11:54
DX: F43.24 Adjustment disorder with disturbance of conduct (principal); F31.9 Bipolar disorder, unspecified
CPT/HCPCS: 36415; 80048; 80076; 80307; 80320; 80329; 81003; 85025; 85610; 85730; 99284

== ENCOUNTER 2024-05-16 23:32 | Emergency (ER) | payer BC, SELFPAY ==
--- OUTSIDE RECORDS SUMMARY | 2024-05-16 23:35 | XMS REPORT | Clinical Summary ---
Author Name Unknown Organization [facility] Address [address] [place] [address] Care Team Providers Care Package Drier Name Role Phone Alexa Tolentino APRN Primary Care Provid er Social History Tobacco Use Types Packs/Day Years Used Date Smoking Tobacco: Never Assessed Sex and Gender Information Value Date Recorded Sex Assigned at Not on file Gender Identity Not on file Sexual Orientation Not on file Job Start Date Occupation Industry Not on file Not on file Not on file Plan of Treatment Upcoming Encounters Date Type Department Care Team (Late st Contact Info) Description 05/31/2024 9:30 AM CDT NPR [facility] PATIENT ACCESS Alexa Tolentino APRN [address] [place] [address] [email or web address] 05/31/2024 10:15 AM CDT Office Visit [facility] [address] [place] [address], [address] [place] [address] Alexa Tolentino APRN [address] [place] [address] [email or web address] 05/31/2024 11:00 AM CDT Clinical Support Breast Center [address] [place] [address], 5th [place] [address] Jyoti Soto [address] [place] [address] [email or web address] Care Teams Package Drier Relationship Specialty Start Date End Date Alexa Tolentino APRN [address] [place] [address] [email or web address] PCP - General Breast Medical Oncology 12/27/23
[2024-05-17] MEDS ORDERED: NA CHLORIDE 0.9% 1,000 ML ONE (00:37)
[2024-05-17 00:56] LABS: PT Prothrombin Time 11.3 SECONDS (9.5-12.5); PTT, Activated Partial Thromb 33.9 SECONDS (24.3-36.9); Protime INR 1.03
[2024-05-17 01:05] LABS: Absolute Lymphocytes (CBC) 1.1 K/uL (0.7-4.9); Absolute Monocytes 0.3 K/uL (0.1-1.3); Absolute Neutrophil 9.8 K/uL (1.8-8.0); Basophils % 0.3 % (0-1.3); Eosinophils % 0.2 % (0-4.4); Hematocrit 40.8 % (36.0-45.0); Hemoglobin 13.3 g/dL (12.0-15.0); Lymphocytes % 9.9 % (15.3-44.8); MCH 26.1 pg (27.0-35.0); MCHC 32.7 g/dL (32.0-36.0); MCV 79.8 fL (80-100); MPV 8.9 fL (7.6-11.3); Monocytes % 2.5 % (3.3-12.3); Neutrophils % 87.1 % (41.7-73.7); Platelets 287 thou/uL (152-406); RBC Red Blood Cell Count 5.11 M/uL (3.86-4.86); Red Cell Distribution Width 15.2 % (12.1-15.2)
[2024-05-17 01:11] LABS: Barbiturates NEGATIVE (NEGATIVE); Benzodiazepines NEGATIVE (NEGATIVE); Cocaine NEGATIVE (NEGATIVE); METHAMPHETAM NEGATIVE (NEGATIVE); Methadone NEGATIVE (NEGATIVE); Opiates NEGATIVE (NEGATIVE); Phencyclidine NEGATIVE (NEGATIVE); THC Cannibis POSITIVE (NEGATIVE)
[2024-05-17 01:40] LABS: ALT/SGPT 35 U/L (13-56); AST/SGOT 53 U/L (15-37); Albumin 4.3 g/dL (3.4-5.0); Alkaline Phosphatase 88 U/L (45-117); Anion Gap 7.3 mEq/L (5.0-15.0); BUN Blood Urea Nitrogen 13 mg/dL (7-18); Bicarbonate 26 mEq/L (21-32); Bilirubin Direct < 0.2 mg/dL (0-0.2); Bilirubin Indirect, Calculated 0.1 mg/dL (0.2-0.8); Bilirubin Total 0.3 mg/dL (0.2-1.0); Globulin 4.4 g/dL (2.3-3.5); Glomerular Filtration Rate 82 ml/min (=/>90); Glucose Level 97 mg/dL (74-106); Potassium 3.3 mEq/L (3.5-5.1); Protein, Total 8.7 g/dL (6.4-8.2); Sodium Level 137 mEq/L (136-145)
[2024-05-17 02:05] LABS: Band Neutrophils 1 % (0-1); Differential Total Cells Count 100; Eosinophils 1 % (0-3); Lymphocytes 9 % (15-42); Monocytes 1 % (0-10); Reactive Lymphocytes 1 %; Segmented Neutrophils 87 % (40-80)
[2024-05-17 02:06] LABS: Blood Morphology Comment NOT SEEN (NOT SEEN); Platelet Estimate ADEQ
--- NOTE | 2024-05-17 02:40 | EDPHYS ---
Physician Documentation [facility] Name: Parisa Hernandez Age: 24 yrs Sex: Female : 2000 Arrival Date: 05/16/2024 Time: 23:32 Bed 3 Private MD: ED Physician William Phillip HPI: 05/16 23:42 This 24 yrs old Black Female presents to ER via Unassigned with complaints of Possible sp4 Overdose. 05/17 02:42 24-year-old female presents with ingestion of total 600 mg trazodone. Patient states sp4 she took 6 pills starting at 10 PM in an attempt to get enough medicine in her system to get some sleep. Patient is concerned about potential overdose. . 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 - Infectious Disease History:: Denies. - Social history:: Smoking status: Reported history of juuling and/or vaping. - Family history:: not pertinent. ROS: 05/17 02:42 Constitutional: Negative for fever, chills, and weight loss, positive for ingestion of sp4 trazodone All other systems are negative, Exam: 02:41 Constitutional: This is a well developed, well nourished patient who is awake, alert, sp4 and in no acute distress. Head/Face: Normocephalic, atraumatic. Eyes: Pupils equal round and reactive to light, extra-ocular motions intact. Lids and lashes normal. Conjunctiva and sclera are not injected. Cornea within normal limits. Periorbital areas with no swelling, redness, or edema. ENT: Nares patent. No nasal discharge, no septal abnormalities noted. Tympanic membranes are normal and external auditory canals are clear. Oropharynx with no redness, swelling, or masses, exudates, or evidence of obstruction, uvula midline. Mucous membranes moist. Neck: Trachea midline, no thyromegaly or masses palpated, and no cervical lymphadenopathy. Supple, full range of motion without nuchal rigidity, or vertebral point tenderness. Chest/axilla: Normal chest wall appearance and motion. Nontender with no deformity. No lesions are appreciated. Cardiovascular: Regular rate and rhythm with a normal S1 and S2. No gallops, murmurs, or rubs. Normal PMI, no JVD. No pulse deficits. Respiratory: Lungs have equal breath sounds bilaterally, clear to auscultation and percussion. No rales, rhonchi or wheezes noted. No increased work of breathing, no retractions or nasal flaring. Abdomen/GI: Soft, with normal bowel sounds. No distension or tympany. No guarding or rebound. No evidence of tenderness throughout. Back: No spinal tenderness. No costovertebral tenderness. Skin: Warm, dry with normal turgor. Normal color with no rashes, no lesions, and no evidence of cellulitis. MS/ Extremity: Pulses equal, no cyanosis. Neurovascular intact. Full, normal range of motion. Neuro: Awake and alert, GCS 15, oriented to person, place, time, and situation. Cranial nerves II-XII grossly intact. Motor strength 5/5 in all extremities. Sensory grossly intact. Psych: Awake, alert, with orientation to person, place and time. Behavior, mood, and affect are within normal limits 02:41 ECG was reviewed by the Attending Physician. EKG at 0057 normal sinus rhythm with sinus arrhythmia rate 69 Vital Signs: 05/16 23:51 BP 133 / 94; Pulse 77; Resp 18; Temp 97.3; Pulse Ox 97% on R/A; Weight 117.93 kg; as6 Height 5 ft. 6 in. ; Pain 0/10; 05/17 02:00 BP 118 / 76; Pulse 85; Resp 16; Pulse Ox 98% ; lc8 02:56 BP 129 / 69; Pulse 86; Resp 17 S; Temp 97.8(T); Pulse Ox 100% on R/A; ha1 05/16 23:51 Body Mass Index 41.96 (117.93 kg, 167.64 cm) as6 05/16 23:51 Pain Scale: Adult as6 [place] Coma Score: 02:42 Eye Response: spontaneous(4). Motor Response: obeys commands(6). Verbal Response: sp4 oriented(5). Total: 15. MDM: 05/16 23:50 Patient medically screened. sp4 05/17 02:42 Differential diagnosis: Ingestion/exposure to Trazodone polypharmacy, over medication. sp4 Data reviewed: vital signs, nurses notes, old medical records, lab test result(s), EKG. Consideration of Admission/Observation Escalation of care including admission/observation considered. ED course: Poison control advised monitoring patient until 5 AM however patient is perfectly stable at this time and she wishes to be discharged home. At this time patient is stable for discharge home. Advised to avoid overmedication and advised to try 10 mg melatonin as needed OTC for insomnia. 05/17 00:02 Order name: Acetaminophen; Complete Time: [facility] 05/17 00:02 Order name: Basic Metabolic Panel; Complete Time: [facility] 05/17 00:02 Order name: CBC with Diff; Complete Time: [facility] 05/17 00:02 Order name: ETOH Level; Complete Time: [facility] 05/17 00:02 Order name: Hepatic Function; Complete Time: [facility] 05/17 00:02 Order name: PT-INR; Complete Time: [facility] 05/17 00:02 Order name: Test, Urine; Complete Time: [facility] 05/17 00:02 Order name: Ptt, Activated; Complete Time: [facility] 05/17 00:02 Order name: Salicylate; Complete Time: [facility] 05/17 00:02 Order name: Urine Drug Screen; Complete Time: [facility] 05/17 01:17 Order name: Manual Differential; Complete Time: [facility] 05/17 00:02 Order name: EKG; Complete Time: 00:03 4 05/17 00:02 Order name: EKG - Nurse/Tech; Complete Time: 01: 4 05/17 00:02 Order name: IV Saline Lock; Complete Time: 00: [facility] 05/17 00:02 Order name: Labs collected and sent; Complete Time: 00: [facility] 05/17 00:02 Order name: Suicide Screening ([place]); Complete Time: 00:04 4 EC:41 Rate is 69 beats/min. Rhythm is regular, Normal Sinus Rhythm. QRS [place] is Normal. MA sp4 interval is normal. QRS interval is normal. QT interval is normal. No Q waves. T waves are Normal. No ST changes noted. Clinical impression: Normal ECG. Interpreted by me. Reviewed by me. Administered Medications: 00:56 Drug: NS 0.9% IV 1000 ml IV at 1 bolus Per protocol; 1000 mL bolus Route: IV; Rate: 1 lc8 bolus; Site: right antecubital; 02:00 Follow up: Response: No adverse reaction; IV Status: Completed infusion; IV Intake: lc8 1000ml Disposition Summary: 05/17/24 02:39 Discharge Ordered Notes: Try Melatonin OTC 10 mg chewable gummies for sleep aid Location: Home sp4 Problem: new sp4 Symptoms: have improved sp4 Condition: Stable sp4 Diagnosis - Trazodone ingestion, accidental overdose, nontoxic injection of medication sp4 Followup: sp4 - With: Private Physician - When: 7 - 10 days - Reason: Recheck today's complaints Discharge Instructions: - Discharge Summary Sheet sp4 - Insomnia sp4 - Medical Screening Exam sp4 Forms: - Patient Portal Instructions sp4 Signatures: Dispatcher [employer] Nick Bentley RN RN as6 William Phillip MD MD sp4 Bunny Swenson RN RN lc8 Corrections: (The following items were deleted from the chart) 00:03 00:03 ACETAMINOPHEN+C.LAB.BRZ ordered. EDMS EDMS 00:03 00:03 BASIC METABOLIC PANEL+C.LAB.BRZ ordered. EDMS EDMS 00:03 00:03 CBC+H.LAB.BRZ ordered. EDMS EDMS 00:03 00:03 ETHANOL+C.LAB.BRZ ordered. EDMS EDMS 00:03 00:03 HEPATIC FUNCTION+C.LAB.BRZ ordered. EDMS EDMS 00:03 00:03 PROTIME (+INR)+COAG.LAB.BRZ ordered. EDMS EDMS 00:03 00:03 Test, Urine+UC.LAB.BRZ ordered. EDMS EDMS 00:03 00:03 PTT, ACTIVATED+COAG.LAB.BRZ ordered. EDMS EDMS 00:03 00:03 SALICYLATE+C.LAB.BRZ ordered. EDMS EDMS 00:03 00:03 URINE DRUG SCREEN+UC.LAB.BRZ ordered. EDMS EDMS
--- NOTE | 2024-05-17 02:40 | ER ---
Nurse's Notes [facility] Name: Parisa Hernandez Age: 24 yrs Sex: Female : 2000 Arrival Date: 05/16/2024 Time: 23:32 Bed 3 Private MD: Diagnosis: Trazodone ingestion, accidental overdose, nontoxic injection of medication Presentation: 05/16 23:51 Chief complaint: Patient states: pt was having trouble sleeping and took extra as6 Trazodone. 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 Coronavirus screen: At this time, the client does not indicate any symptoms associated with coronavirus-19. Ebola Screen: No symptoms or risks identified at this time. Initial Sepsis Screen: Does the patient meet any 2 criteria? No. Patient's initial sepsis screen is negative. Does the patient have a suspected source of infection? No. Patient's initial sepsis screen is negative. Risk Assessment: Do you want to hurt yourself or someone else? Patient reports no desire to harm self or others. Onset of symptoms was May 16, 2024. 23:51 Acuity: ENA 3 as6 23:51 Method Of Arrival: Ambulatory as6 Triage Assessment: 23:54 General: Appears in no apparent distress. comfortable, Behavior is calm, cooperative. as6 Pain: Denies pain. Neuro:. Cardiovascular: Reports lightheadedness. 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 - Infectious Disease History:: Denies. - Social history:: Smoking status: Reported history of juuling and/or vaping. - Family history:: not pertinent. Screenin/19 00:00 [facility] ED Fall Risk Assessment (Adult) History of falling in the last 3 months, lc8 including since admission No falls in past 3 months (0 pts) Confusion or Disorientation No (0 pts) Intoxicated or Sedated No (0 pts) Impaired Gait No (0 pts) Mobility Assist Device Used No (0 pt) Altered Elimination No (0 pt) Score/Fall Risk Level 0 - 2 = Low Risk. 00:00 Abuse screen: Denies threats or abuse. Denies injuries from another. Nutritional lc8 screening: No deficits noted. Tuberculosis screening: No symptoms or risk factors identified. Assessment: 01:57 General: Appears in no apparent distress. comfortable, Behavior is calm, cooperative, lc8 appropriate for age. Pain: Denies pain. Neuro: Level of Consciousness is awake, alert, obeys commands, Oriented to person, place, time, situation. Cardiovascular: No deficits noted. Capillary refill < 3 seconds. Respiratory: Airway is patent Respiratory effort is even, unlabored, Respiratory pattern is regular, symmetrical. GI: Patient currently denies. : Denies. EENT: Denies. Derm: Denies. Derm: No signs and/or symptoms reported regarding the dermatologic system. Musculoskeletal: No signs and/or symptoms reported regarding the musculoskeletal system. Denies. 02:30 Reassessment: Patient appears in no apparent distress at this time. No changes from lc8 previously documented assessment. Patient and/or family updated on plan of care and expected duration. Pain level reassessed. Patient is alert, oriented x 3, equal unlabored respirations, skin warm/dry/pink. 02:30 General: Appears in no apparent distress. comfortable. lc8 02:56 Reassessment: Patient and/or family updated on plan of care and expected duration. Pain ha1 level reassessed. Patient is alert, oriented x 3, equal unlabored respirations, skin warm/dry/pink. Patient denies pain at this time. Patient states feeling better. Patient states symptoms have improved. Vital Signs: 05/16 23:51 BP 133 / 94; Pulse 77; Resp 18; Temp 97.3; Pulse Ox 97% on R/A; Weight 117.93 kg; as6 Height 5 ft. 6 in. ; Pain 0/10; 05/17 02:00 BP 118 / 76; Pulse 85; Resp 16; Pulse Ox 98% ; lc8 02:56 BP 129 / 69; Pulse 86; Resp 17 S; Temp 97.8(T); Pulse Ox 100% on R/A; ha1 05/16 23:51 Body Mass Index 41.96 (117.93 kg, 167.64 cm) as6 05/16 23:51 Pain Scale: Adult as6 [place] Coma Score: 02:42 Eye Response: spontaneous(4). Motor Response: obeys commands(6). Verbal Response: sp4 oriented(5). Total: 15. ED Course: 05/16 23:37 Patient arrived in ED. gm2 23:42 William Phillip MD is Attending Physician. sp4 23:53 Triage completed. as6 23:54 Arm band placed on. as6 06 00:00 Patient has correct armband on for positive identification. Bed in low position. Call lc8 light in reach. Side rails up X 1. Provided Education on: COURSE OF ED STAY. 00:23 Acetaminophen Sent. ha1 00:24 Basic Metabolic Panel Sent. ha1 00:24 CBC with Diff Sent. ha1 00:24 ETOH Level Sent. ha1 00:24 Hepatic Function Sent. ha1 00:24 PT-INR Sent. ha1 00:38 Initial lab(s) drawn, by me, sent to lab. Urine collected: clean catch specimen, clear, vk EKG done, by ED staff. Inserted saline lock: 22 gauge in right antecubital area, using aseptic technique. 01:01 Acetaminophen Sent. vk 01:01 Basic Metabolic Panel Sent. vk 01:01 CBC with Diff Sent. vk 01:01 ETOH Level Sent. vk 01:01 Hepatic Function Sent. vk 01:01 Salicylate Sent. vk 01:01 Urine Drug Screen Sent. vk 02:56 No provider procedures requiring assistance completed. IV discontinued, intact, ha1 bleeding controlled, No redness/swelling at site. Pressure dressing applied. Administered Medications: 00:56 Drug: NS 0.9% IV 1000 ml IV at 1 bolus Per protocol; 1000 mL bolus Route: IV; Rate: 1 lc8 bolus; Site: right antecubital; 02:00 Follow up: Response: No adverse reaction; IV Status: Completed infusion; IV Intake: lc8 1000ml Medication: 00:00 VIS not applicable for this client. lc8 Intake: 02:00 IV: 1000ml; Total: 1000ml. lc8 Outcome: 02:39 Discharge ordered by . sp4 02:57 Discharged to home ambulatory, ha1 02:57 Condition: stable 02:57 Discharge instructions given to patient, Instructed on discharge instructions, follow up and referral plans. Demonstrated understanding of instructions, follow-up care, 02:57 Patient left the ED. ha1 Signatures: Nick Chao RN RN as6 Elisa Dominguez RN RN ha1 William Phillip MD MD sp4 Emily Hinson gm2 Mey Weiner LaBrisha, RN RN lc8
[2024-05-17 03:42] VITALS: BP 129/69; TEMP 97.8; O2SAT 100
--- NOTE | 2024-05-18 16:19 | EKG ---
Test Date: 2024-05-17 Test Time: 00:57:33 Check Examiner: SERVANDO MEASUREMENT RESULTS: Intervals: Rate: 69 CA: 166 QRSD: 90 QT: 434 QTc: 465 [place]: P: 57 CA: 166 QRS: 59 T: 40 INTERPRETIVE STATEMENTS: Normal sinus rhythm with sinus arrhythmia Septal infarct, age undetermined Abnormal ECG Compared to ECG 08/08/2020 16:37:38 Myocardial infarct finding now present Electronically Signed On 05-18-24 16:16:46 CDT by Dakotah Dominguez
== END 2024-05-17 02:57 | disposition home or self-care (01) ==
LOC: ER 23:32
DX: T43.211A Poisoning by selective serotonin and norepinephrine reuptake inhibitors, accidental (unintentional), initial encounter (principal)
CPT/HCPCS: 36415; 80048; 80076; 80143; 80179; 80307; 81025; 82077; 85025; 85610; 85730; 93005; J7030